=== PATIENT | male | born 1950 | race Caucasian/White ===

== ENCOUNTER → 2017-06-15 | Outpatient (CLI) | payer OTHER | END | disposition home or self-care (01) | LOC: PETCFH 07:49 | PROVIDERS: ATTEND Internal Medicine Hematology & Oncology | DX: C83.18 Mantle cell lymphoma, lymph nodes of multiple sites (principal); I70.0 Atherosclerosis of aorta | CPT/HCPCS: 78815; A9552 ==

== ENCOUNTER 2017-07-10 08:24 | Day surgery (SDC) | payer OTHER ==
[~2017-07-10] VITALS: Ht 198.1 cm; Wt 124.5 kg
[2017-07-10] MEDS ORDERED: PLEASE ENTER HEIGHT AND WEIGHT MC SCH (09:00)
[2017-07-10] MEDS ORDERED: PLEASE ENTER ALLERGIES MC SCH ×2 (09:00)
[2017-07-10] MEDS ORDERED: SODIUM CHLORIDE 0.9% 1,000 ML IV SCH (09:06)
[2017-07-10 09:07] VITALS: BP 164/82
[2017-07-10] MEDS ORDERED: metformin PO (09:13)
[2017-07-10] MEDS ORDERED: TAMS0.4C2 PO (09:13)
[2017-07-10] MEDS ORDERED: LISI5TAB7 PO (09:13)
[2017-07-10] MEDS ORDERED: januvia (09:13)
[2017-07-10] MEDS ORDERED: CEFAZOLIN PMX 1GM/50ML 50 ML IV ONE (09:30)
[2017-07-10] MEDS ORDERED: LIDOCAINE 2%, 20ML ONE (09:44)
[2017-07-10] MEDS ORDERED: MIDAZOLAM 1 MG/ML, 5ML ONE (10:04)
[2017-07-10] MEDS ORDERED: FENTANYL PF 100 MCG/2ML ONE (10:04)
[2017-07-10] MEDS ORDERED: FLUMAZENIL 0.1 MG/1 ML, 5ML ONE (10:05)
[2017-07-10] MEDS ORDERED: NALOXONE 1 MG/ML, 2ML ONE (10:05)
[2017-07-10] MEDS ORDERED: LIDOCAINE 1%, 20ML ONE (10:40)
== END 2017-07-10 13:00 ==
LOC: OUT 08:24
PROVIDERS: ATTEND Internal Medicine Hematology & Oncology
DX: Z45.2 Encounter for adjustment and management of vascular access device (principal); Z51.11 Encounter for antineoplastic chemotherapy; C83.18 Mantle cell lymphoma, lymph nodes of multiple sites; I10 Essential (primary) hypertension; Z87.891 Personal history of nicotine dependence
CPT/HCPCS: 36561; 76937; 77001; 99156; 99157; C1788; C1894; J0690; J1642; J2250; J3010; J3490; J2310

== ENCOUNTER 2017-07-16 07:39 | Day surgery (SDC) | payer OTHER ==
[~2017-07-16 07:39] MED LIST: LISI5TAB7 PO; TAMS0.4C2 PO; januvia; metformin PO
[2017-07-16] MEDS ORDERED: LIDOCAINE 2%, 20ML ONE (07:46)
== END 2017-07-16 15:00 ==
LOC: RAD 07:39
PROVIDERS: ATTEND Surgery
DX: C83.10 Mantle cell lymphoma, unspecified site (principal); C83.30 Diffuse large B-cell lymphoma, unspecified site
CPT/HCPCS: 38221; 38505; 77012; 85097; 88237; 88264; 88280; 88305; G0364; 85025; 88311; J3490

== ENCOUNTER → 2017-10-22 | Outpatient (CLI) | payer OTHER | END | disposition home or self-care (01) | LOC: PETCFH 09:14 | PROVIDERS: ATTEND Internal Medicine Hematology & Oncology | DX: C83.18 Mantle cell lymphoma, lymph nodes of multiple sites (principal); D69.6 Thrombocytopenia, unspecified | CPT/HCPCS: 78815; A9552 ==

== ENCOUNTER → 2018-02-04 | Outpatient (CLI) | payer OTHER, MEDICARE | LOC: PETCFH 08:35 | PROVIDERS: ATTEND Internal Medicine Hematology & Oncology | DX: C83.18 Mantle cell lymphoma, lymph nodes of multiple sites (principal); R91.1 Solitary pulmonary nodule | CPT/HCPCS: 78815; A9552 ==

== ENCOUNTER 2018-03-11 06:55 | Day surgery (SDC) | payer OTHER, MEDICARE ==
[~2018-03-11] VITALS: Ht 195.6 cm; Wt 116.6 kg
[2018-03-11] MEDS ORDERED: SODIUM CHLORIDE 0.9% 1,000 ML IV SCH (07:33)
[2018-03-11 07:34] VITALS: BP 135/79
[2018-03-11] MEDS ORDERED: LIDOCAINE 2%, 20ML ONE (08:04)
[2018-03-11] MEDS ORDERED: FENTANYL PF 100 MCG/2ML ONE (08:18)
[2018-03-11] MEDS ORDERED: MIDAZOLAM 1 MG/ML, 5ML ONE (08:18)
[2018-03-11] MEDS ORDERED: FLUMAZENIL 0.1 MG/1 ML, 5ML ONE (08:18)
[2018-03-11] MEDS ORDERED: NALOXONE 1 MG/ML, 2ML ONE (08:18)
== END 2018-03-11 10:30 | disposition home or self-care (01) ==
LOC: OUT 06:55
PROVIDERS: ATTEND Internal Medicine Hematology & Oncology
DX: Z45.2 Encounter for adjustment and management of vascular access device (principal); C83.18 Mantle cell lymphoma, lymph nodes of multiple sites; F17.210 Nicotine dependence, cigarettes, uncomplicated; E11.9 Type 2 diabetes mellitus without complications; I10 Essential (primary) hypertension; E78.5 Hyperlipidemia, unspecified; Z98.890 Other specified postprocedural states; Z79.84 Long term (current) use of oral hypoglycemic drugs
CPT/HCPCS: 36590; 77001; 82962; 99156; J2250; J3010; J3490; 99157; J2310

== ENCOUNTER → 2019-01-20 | Outpatient (CLI) | payer OTHER ==
[~2019-01-20] MED LIST changes: +METOPROLOL
== END | disposition home or self-care (01) ==
LOC: PETCFH 08:56
PROVIDERS: ATTEND Internal Medicine Hematology & Oncology
DX: C83.18 Mantle cell lymphoma, lymph nodes of multiple sites (principal); D69.6 Thrombocytopenia, unspecified; J90 Pleural effusion, not elsewhere classified; R59.1 Generalized enlarged lymph nodes; R91.1 Solitary pulmonary nodule
CPT/HCPCS: 78815; A9552

== ENCOUNTER 2019-01-21 12:19 | Day surgery (SDC) | payer OTHER ==
[~2019-01-21] VITALS: Ht 195.6 cm; Wt 106.6 kg
[~2019-01-21 12:19] MED LIST changes: -METOPROLOL
[2019-01-21 13:05] VITALS: BP 97/64
[2019-01-21] MEDS ORDERED: FENTANYL PF 100 MCG/2ML ONE (13:43)
[2019-01-21] MEDS ORDERED: MIDAZOLAM 1 MG/ML, 5ML ONE ×2 (13:43)
[2019-01-21] MEDS ORDERED: FLUMAZENIL 0.1 MG/1 ML, 5ML ONE (13:44)
[2019-01-21] MEDS ORDERED: NALOXONE 1 MG/ML, 2ML ONE (13:44)
== END 2019-01-21 16:10 | disposition home or self-care (01) ==
LOC: OUT 12:19
PROVIDERS: ATTEND Internal Medicine Hematology & Oncology
DX: C83.18 Mantle cell lymphoma, lymph nodes of multiple sites (principal); F17.200 Nicotine dependence, unspecified, uncomplicated; E11.9 Type 2 diabetes mellitus without complications; I10 Essential (primary) hypertension; E78.5 Hyperlipidemia, unspecified; Z98.890 Other specified postprocedural states; Z79.84 Long term (current) use of oral hypoglycemic drugs
CPT/HCPCS: 49180; 77012; 88305; 88342; 88360; 99156; 99157; J2250; J3010; J2310

== ENCOUNTER 2019-01-23 15:28 | Inpatient (IN) | payer OTHER, MEDICARE ==
[~2019-01-23] VITALS: Ht 195.6 cm; Wt 86.8 kg
[2019-01-23] MEDS ORDERED: NOREPINEPHRINE 4 MG in SODIUM CHLORIDE 0.9% 246 ML IV PRN ×2 (15:30→17:30)
[2019-01-23] MEDS ORDERED: SODIUM CHLORIDE FLUSH 10ML SYR IVF ONE (15:30)
[2019-01-23] MEDS ORDERED: SODIUM CHLORIDE FLUSH 10ML SYR IVF PRN (16:00)
[2019-01-23 16:05] LABS: MEAN CORPUSCULAR HEMOGLOBIN 33.7 pg (27.5-34.5); MEAN CORPUSCULAR HGB CONC 31.8 g/dL (33.2-36.2); MEAN CORPUSCULAR VOLUME 105.9 fL (81-97); MEAN PLATELET VOLUME 8.8 fL (7.4-10.4); PLATELET COUNT 108 x10^3/uL (130-400); RED BLOOD COUNT 2.96 x10^6/uL (4.38-5.82); RED CELL DISTRIBUTION WIDTH 21.7 % (9.4-14.8)
[2019-01-23] MEDS ORDERED: METOPROLOL (16:15)
[2019-01-23 16:16] LABS: INTERNATIONAL NORMALIZED RATIO 1.09 (0.93-1.1); PROTHROMBIN TIME 11.4 Seconds (9.6-11.5)
[2019-01-23 16:17] LABS: ALANINE AMINOTRANSFERASE 22 U/L (12-78); ALBUMIN 2.6 g/dL (3.4-5.0); ANION GAP 18 mmol/L (5-15); CALCIUM 8.8 mg/dL (8.5-10.1); CHLORIDE 105 mmol/L (98-107); CREATININE 2.45 mg/dL (0.7-1.3)
[2019-01-23 16:21] LABS: ALKALINE PHOSPHATASE 94 U/L (45-117); BILIRUBIN,TOTAL 0.2 mg/dL (0.2-1.0); TOTAL PROTEIN 5.8 g/dL (6.4-8.2)
[2019-01-23 16:23] LABS: MD YES
[2019-01-23 16:27] LABS: BAND#(MANUAL) 4.98 x10^3/uL; BANDS%(MANUAL) 14 % (0-7); LYMPHS% (MANUAL) 34 % (22-44); MONOS#(MANUAL) 1.78 x10^3/uL (0.3-2.7); MONOS% (MANUAL) 5 % (2-9); REACTIVE LYMPHS # (MANUAL) 4.27 x10^3/uL (0-0); REACTIVE LYMPHS % (MANUAL) 12 % (0-0); SEG#(MANUAL) 12.46 x10^3/uL (1.8-6.8); SEGS% (MANUAL) 35 % (42-75)
[2019-01-23 16:28] LABS: <PLATELET ESTIMATE> DECREASED; <PLT MORPHOLOGY> NORMAL PLT MORPH; ANISOCYTOSIS 1+; POLYCHROMASIA 1+
[2019-01-23] MEDS ORDERED: DEXTROSE 50%, 50ML SYRINGE IVPush PRN (17:30)
[2019-01-23] MEDS ORDERED: POLYETHYLENE GLYCOL 17 GM PACKET PO PRN (17:30)
[2019-01-23] MEDS ORDERED: PHARMACY MAY ADJ FOR RENAL FX MC PRN (17:30)
[2019-01-23] MEDS ORDERED: GLUCAGON 1 MG IM PRN (17:30)
[2019-01-23] MEDS ORDERED: VANCOMYCIN PMX 1GM/200ML 200 ML IV ONE (17:30)
[2019-01-23] MEDS ORDERED: BISACODYL 10 MG SUPP PR PRN (17:30)
[2019-01-23] MEDS ORDERED: PROMETHAZINE 25 MG/ML, 1ML IM PRN (17:30)
[2019-01-23] MEDS ORDERED: DOCUSATE 100 MG CAPSULE PO PRN (17:30)
[2019-01-23] MEDS ORDERED: DEXTROSE 4 GM TAB.CHEW PO PRN (17:30)
[2019-01-23] MEDS ORDERED: SODIUM CHLORIDE 0.9% 1,000ML IVBOLUS ONE (17:30)
[2019-01-23] MEDS ORDERED: MAGNESIUM SULFATE PMX 2GM/50ML 50 ML IV ONE (17:30)
[2019-01-23] MEDS ORDERED: VANCOMYCIN PER PHARMACY MC PRN (17:30)
[2019-01-23] MEDS: SODIUM CHLORIDE 0.9% 1,000 ML IV SCH (17:30)
[2019-01-23] MEDS ORDERED: HEPARIN 5,000 UNITS/ML, 1ML ONE (17:39)
[2019-01-23] MEDS: HEPARIN 5,000 UNITS/ML, 1ML SQ SCH (17:40)
[2019-01-23] MEDS ORDERED: PHARMACOKINETIC MONITORING MC PRN (18:00)
[2019-01-23] MEDS ORDERED: PHARMACOKINETIC CONSULTATION MC ONE (18:00)
[2019-01-23] MEDS: VANCOMYCIN 2,000 MG in SODIUM CHLORIDE 0.9% 500 ML IV SCH (18:38)
[2019-01-23] MEDS: VASOPRESSIN 100 UNIT in SODIUM CHLORIDE 0.9% 495 ML IV PRN (18:53)
[2019-01-23] MEDS: PIPERACILLIN/TAZO/PMX 3.375GM 50 ML IV SCH (19:08)
[2019-01-23] MEDS: INSULIN LISPRO 100 UNITS/ML, PEN SQ-INSULIN SCH (21:00)
[2019-01-23] MEDS: SODIUM CHLORIDE FLUSH 10ML SYR IVF SCH (23:03)
[2019-01-23] MEDS: NOREPINEPHRINE 8 MG in SODIUM CHLORIDE 0.9% 242 ML IV PRN (23:22)
[2019-01-24 00:13] VITALS: BP 130/64
[2019-01-24] MEDS: PIPERACILLIN/TAZO/PMX 3.375GM 50 ML IV SCH ×2 (01:49→10:08)
[2019-01-24] MEDS: HEPARIN 5,000 UNITS/ML, 1ML SQ SCH ×3 (01:49→17:55)
[2019-01-24 04:00] VITALS: BP 110/45
[2019-01-24 04:58] LABS: CHLORIDE 108 mmol/L (98-107)
[2019-01-24 04:59] LABS: MEAN CORPUSCULAR HEMOGLOBIN 33.6 pg (27.5-34.5); MEAN CORPUSCULAR HGB CONC 31.6 g/dL (33.2-36.2); MEAN CORPUSCULAR VOLUME 106.3 fL (81-97); RED BLOOD COUNT 2.84 x10^6/uL (4.38-5.82); RED CELL DISTRIBUTION WIDTH 21.6 % (9.4-14.8)
[2019-01-24] MEDS: SODIUM CHLORIDE 0.9% 1,000 ML IV SCH ×3 (05:02→23:12)
[2019-01-24 05:29] LABS: ALANINE AMINOTRANSFERASE 24 U/L (12-78); ALBUMIN 2.5 g/dL (3.4-5.0); ALKALINE PHOSPHATASE 89 U/L (45-117); ANION GAP 12 mmol/L (5-15); BILIRUBIN,TOTAL 0.2 mg/dL (0.2-1.0); CALCIUM 8.4 mg/dL (8.5-10.1); CREATININE 1.57 mg/dL (0.7-1.3); TOTAL PROTEIN 5.7 g/dL (6.4-8.2)
[2019-01-24 05:43] LABS: MD YES; MEAN PLATELET VOLUME 9.4 fL (7.4-10.4); PLATELET COUNT 93 x10^3/uL (130-400)
[2019-01-24 05:50] LABS: BAND#(MANUAL) 2.14 x10^3/uL; BANDS%(MANUAL) 7 % (0-7); LYMPH#(MANUAL) 8.57 x10^3/uL (1-3.4); LYMPHS% (MANUAL) 28 % (22-44); MONOS#(MANUAL) 0.61 x10^3/uL (0.3-2.7); MONOS% (MANUAL) 2 % (2-9); SEG#(MANUAL) 13.16 x10^3/uL (1.8-6.8); SEGS% (MANUAL) 43 % (42-75)
[2019-01-24 05:52] LABS: ANISOCYTOSIS 1+; OTHER CELLS # (MANUAL) 6.12 x10^3/uL (0-0); OTHER CELLS % (MANUAL) 20 % (0-0); POLYCHROMASIA 1+
[2019-01-24 05:53] LABS: <PLATELET ESTIMATE> DECREASED; <PLT MORPHOLOGY> NORMAL PLT MORPH
[2019-01-24] MEDS: INSULIN LISPRO 100 UNITS/ML, PEN SQ-INSULIN SCH ×4 (06:32→20:47)
[2019-01-24] MEDS ORDERED: ETOMIDATE 20 MG/10 ML ONE (07:40)
[2019-01-24] MEDS ORDERED: ROCURONIUM 10 MG/ML,10ML ONE (07:40)
[2019-01-24] MEDS ORDERED: PROPOFOL 10 MG/ML, 100ML IV ONE (07:40)
[2019-01-24] MEDS: SENNA/DOCUSATE TABLET PO SCH (09:00)
[2019-01-24] MEDS: SODIUM CHLORIDE FLUSH 10ML SYR IVF SCH ×3 (09:00→20:48)
[2019-01-24] MEDS: methylPREDNISolone SOD SUCC 125 MG/2 ML IVPush SCH ×3 (11:09→23:34)
[2019-01-24] MEDS ORDERED: LORazepam 2 MG/ML, 1ML ONE (11:57)
[2019-01-24] MEDS ORDERED: FENTANYL PF 100 MCG/2ML ONE (12:08)
[2019-01-24] MEDS ORDERED: LACTULOSE 20 GM/30 ML UDC NG PRN (13:30)
[2019-01-24] MEDS ORDERED: GLUCAGON 1 MG IM PRN (13:30)
[2019-01-24] MEDS ORDERED: PHARMACY MAY ADJ FOR RENAL FX MC SCH (13:30)
[2019-01-24] MEDS ORDERED: SENNA 176 MG/5 ML ORAL SOL NG PRN (13:30)
[2019-01-24] MEDS ORDERED: ALBUTEROL/IPRATROPIUM 2.5MG/0.5MG, 3 ML INLINE SCH (13:30)
[2019-01-24] MEDS ORDERED: DEXTROSE 50%, 50ML SYRINGE IVPush PRN (13:30)
[2019-01-24] MEDS ORDERED: LIDOCAINE-MPF 1%, 2ML ENDO PRN (13:30)
[2019-01-24] MEDS ORDERED: BISACODYL 10 MG SUPP PR PRN (13:30)
[2019-01-24] MEDS ORDERED: SENNA/DOCUSATE TABLET NG PRN (13:30)
[2019-01-24] MEDS ORDERED: DEXTROSE 4 GM TAB.CHEW PO PRN (13:30)
[2019-01-24] MEDS: PROPOFOL 100 ML IV PRN ×3 (14:00→21:51)
[2019-01-24 14:18] LABS: MEAN CORPUSCULAR HEMOGLOBIN 34.4 pg (27.5-34.5); MEAN CORPUSCULAR HGB CONC 32.1 g/dL (33.2-36.2); MEAN PLATELET VOLUME 8.9 fL (7.4-10.4); PLATELET COUNT 108 x10^3/uL (130-400); RED BLOOD COUNT 2.92 x10^6/uL (4.38-5.82); RED CELL DISTRIBUTION WIDTH 21.3 % (9.4-14.8)
[2019-01-24 14:23] LABS: INTERNATIONAL NORMALIZED RATIO 1.09 (0.93-1.1); PROTHROMBIN TIME 11.4 Seconds (9.6-11.5)
[2019-01-24 14:24] LABS: ANION GAP 9 mmol/L (5-15); CALCIUM 8.7 mg/dL (8.5-10.1); CHLORIDE 109 mmol/L (98-107); CREATININE 1.78 mg/dL (0.7-1.3); TRIGLYCERIDES 266 mg/dL (50-200)
[2019-01-24 14:28] LABS: TROPONIN I < 0.015 ng/mL (0.000-0.045)
[2019-01-24] MEDS ORDERED: SODIUM BICARBONATE 1 MEQ/ML, 50ML VIAL IVPush ONE (14:30)
[2019-01-24] MEDS ORDERED: SODIUM BICARB 8.4%, 50ML SYRINGE ONE (14:34)
[2019-01-24 14:38] LABS: MD YES
[2019-01-24] MEDS: ALBUTEROL/IPRATROPIUM 2.5MG/0.5MG, 3 ML INLINE SCH ×3 (14:40→22:26)
[2019-01-24 14:48] LABS: BAND#(MANUAL) 2.22 x10^3/uL; BANDS%(MANUAL) 6 % (0-7); LYMPH#(MANUAL) 12.21 x10^3/uL (1-3.4); LYMPHS% (MANUAL) 33 % (22-44); METAMYELOCYTES# (MANUAL) 0.37 x10^3/uL (0-0); METAMYELOCYTES% (MANUAL) 1 % (0-1); MONOS#(MANUAL) 2.22 x10^3/uL (0.3-2.7); MONOS% (MANUAL) 6 % (2-9); SEG#(MANUAL) 16.65 x10^3/uL (1.8-6.8); SEGS% (MANUAL) 45 % (42-75)
[2019-01-24 14:51] LABS: ANISOCYTOSIS 1+; OTHER CELLS # (MANUAL) 3.33 x10^3/uL (0-0); OTHER CELLS % (MANUAL) 9 % (0-0)
[2019-01-24 14:52] LABS: <PLATELET ESTIMATE> DECREASED; <PLT MORPHOLOGY> NORMAL PLT MORPH; POLYCHROMASIA 1+
[2019-01-24] MEDS ORDERED: ALBUMIN HUMAN 5% 500 ML IV STA (15:42)
[2019-01-24] MEDS: MEROPENEM 1 GM in SODIUM CHLORIDE 0.9% 100 ML IV SCH (16:40)
[2019-01-24 16:43] LABS: MICROSCOPIC INDICATED
[2019-01-24 16:58] LABS: CULTURE INDICATED? NO
[2019-01-24] MEDS: SODIUM BICARBONATE 8.4% 150 MEQ in DEXTROSE 5% 1,000 ML IV SCH (17:55)
[2019-01-24] MEDS: NOREPINEPHRINE 8 MG in SODIUM CHLORIDE 0.9% 242 ML IV PRN (19:41)
[2019-01-24 19:57] LABS: TROPONIN I < 0.015 ng/mL (0.000-0.045)
[2019-01-24] MEDS: VANCOMYCIN 2,000 MG in SODIUM CHLORIDE 0.9% 500 ML IV SCH (20:17)
[2019-01-24] MEDS: VASOPRESSIN 100 UNIT in SODIUM CHLORIDE 0.9% 495 ML IV PRN (23:37)
[2019-01-25] MEDS: MEROPENEM 1 GM in SODIUM CHLORIDE 0.9% 100 ML IV SCH ×2 (00:28→08:01)
[2019-01-25] MEDS: HEPARIN 5,000 UNITS/ML, 1ML SQ SCH ×3 (02:10→17:30)
[2019-01-25] MEDS: PROPOFOL 100 ML IV PRN ×7 (02:10→21:54)
[2019-01-25] MEDS: ALBUTEROL/IPRATROPIUM 2.5MG/0.5MG, 3 ML INLINE SCH ×6 (02:13→22:48)
[2019-01-25] MEDS: NOREPINEPHRINE 8 MG in SODIUM CHLORIDE 0.9% 242 ML IV PRN ×2 (03:42→18:28)
[2019-01-25 04:00] VITALS: BP 106/55
[2019-01-25 05:11] LABS: HCT (SEDRATE) 25.8 % (39.2-51.8)
[2019-01-25] MEDS: methylPREDNISolone SOD SUCC 125 MG/2 ML IVPush SCH (05:14)
[2019-01-25 05:17] LABS: ALBUMIN 2.3 g/dL (3.4-5.0); ANION GAP 9 mmol/L (5-15); CHLORIDE 109 mmol/L (98-107)
[2019-01-25 05:18] LABS: MEAN CORPUSCULAR HGB CONC 32.1 g/dL (33.2-36.2); MEAN CORPUSCULAR VOLUME 105.8 fL (81-97); MEAN PLATELET VOLUME 9.1 fL (7.4-10.4); PLATELET COUNT 104 x10^3/uL (130-400); RED BLOOD COUNT 2.47 x10^6/uL (4.38-5.82)
[2019-01-25 05:29] LABS: RED CELL DISTRIBUTION WIDTH 21.5 % (9.4-14.8)
[2019-01-25 05:32] LABS: ALANINE AMINOTRANSFERASE 23 U/L (12-78); ALKALINE PHOSPHATASE 101 U/L (45-117); BILIRUBIN,TOTAL 0.8 mg/dL (0.2-1.0); CREATININE 2.18 mg/dL (0.7-1.3); TOTAL PROTEIN 5.5 g/dL (6.4-8.2)
[2019-01-25 05:43] LABS: C-REACTIVE PROTEIN, QUANT > 19.00 mg/dL (0.02-0.49)
[2019-01-25 05:45] LABS: MD YES
[2019-01-25 05:47] LABS: <PLATELET ESTIMATE> DECREASED; <PLT MORPHOLOGY> NORMAL PLT MORPH; ANISOCYTOSIS 1+; BAND#(MANUAL) 0.73 x10^3/uL; BANDS%(MANUAL) 2 % (0-7); LYMPH#(MANUAL) 13.54 x10^3/uL (1-3.4); LYMPHS% (MANUAL) 37 % (22-44); MONOS#(MANUAL) 4.03 x10^3/uL (0.3-2.7); MONOS% (MANUAL) 11 % (2-9); NRBC % (MANUAL) 1 % (0-1); POLYCHROMASIA 1+; SEGS% (MANUAL) 50 % (42-75)
[2019-01-25] MEDS: INSULIN LISPRO 100 UNITS/ML, PEN SQ-INSULIN SCH ×4 (06:39→21:00)
[2019-01-25] MEDS: SODIUM BICARBONATE 8.4% 150 MEQ in DEXTROSE 5% 1,000 ML IV SCH ×2 (08:01→21:09)
[2019-01-25] MEDS: SENNA/DOCUSATE TABLET PO SCH (08:44)
[2019-01-25] MEDS: SODIUM CHLORIDE FLUSH 10ML SYR IVF SCH ×4 (08:46→21:10)
[2019-01-25] MEDS ORDERED: LIDOCAINE 1%, 20ML ONE (10:00)
[2019-01-25] MEDS: CEFAZOLIN 2,000 MG in SODIUM CHLORIDE 0.9% 50 ML IV SCH ×2 (10:19→21:53)
[2019-01-25] MEDS ORDERED: FAMOTIDINE 20 MG/2 ML IVPush SCH (11:00)
[2019-01-25] MEDS: FENTANYL PF 100 MCG/2ML IVPush PRN (11:32)
[2019-01-25 13:40] LABS: ANION GAP 11 mmol/L (5-15); CALCIUM 8.1 mg/dL (8.5-10.1); CHLORIDE 108 mmol/L (98-107); CREATININE 2.49 mg/dL (0.7-1.3)
[2019-01-25] MEDS ORDERED: HEPARIN 1,000 UNITS/ML, 10ML ONE (13:51)
[2019-01-25] MEDS ORDERED: BUPIVACAINE/EPI 0.5% 1:200K ONE (13:51)
[2019-01-25] MEDS ORDERED: ROCURONIUM 10 MG/ML,10ML ONE (14:33)
[2019-01-25] MEDS ORDERED: PROPOFOL 10 MG/ML, 50ML ONE (14:33)
[2019-01-25] MEDS ORDERED: PROPOFOL 10 MG/ML, 20ML ONE (14:33)
[2019-01-25 18:41] LABS: ANION GAP 12 mmol/L (5-15); CALCIUM 8.1 mg/dL (8.5-10.1); CHLORIDE 109 mmol/L (98-107); CREATININE 2.67 mg/dL (0.7-1.3)
[2019-01-25 19:09] LABS: MEAN CORPUSCULAR HEMOGLOBIN 34.5 pg (27.5-34.5); MEAN CORPUSCULAR HGB CONC 32.5 g/dL (33.2-36.2); MEAN CORPUSCULAR VOLUME 106.2 fL (81-97); MEAN PLATELET VOLUME 8.8 fL (7.4-10.4); PLATELET COUNT 99 x10^3/uL (130-400); RED BLOOD COUNT 2.33 x10^6/uL (4.38-5.82)
[2019-01-25 19:44] LABS: MD YES
[2019-01-25 20:00] LABS: D-DIMER (DIC) 5.62 ug/mlFEU (0.00-0.52); PROTIME 10.9 Seconds (9.6-11.5)
[2019-01-25] MEDS: FAMOTIDINE 20 MG/2 ML IVPush SCH (21:12)
[2019-01-25 22:30] LABS: BAND#(MANUAL) 0.36 x10^3/uL; BANDS%(MANUAL) 1 % (0-7); LYMPH#(MANUAL) 11.04 x10^3/uL (1-3.4); LYMPHS% (MANUAL) 31 % (22-44); MONOS#(MANUAL) 1.78 x10^3/uL (0.3-2.7); MONOS% (MANUAL) 5 % (2-9); SEG#(MANUAL) 17.44 x10^3/uL (1.8-6.8); SEGS% (MANUAL) 49 % (42-75)
[2019-01-25 22:31] LABS: NRBC % (MANUAL) 1 % (0-1); OTHER CELLS # (MANUAL) 4.98 x10^3/uL (0-0); OTHER CELLS % (MANUAL) 14 % (0-0)
[2019-01-25 22:32] LABS: POLYCHROMASIA 1+
[2019-01-25 22:33] LABS: ROULEAUX 1+
[2019-01-25 22:36] LABS: <PLATELET ESTIMATE> DECREASED; <PLT MORPHOLOGY> NORMAL PLT MORPH
[2019-01-26] MEDS: PROPOFOL 100 ML IV PRN ×8 (00:40→22:47)
[2019-01-26] MEDS: HEPARIN 5,000 UNITS/ML, 1ML SQ SCH ×3 (02:09→16:58)
[2019-01-26] MEDS: ALBUTEROL/IPRATROPIUM 2.5MG/0.5MG, 3 ML INLINE SCH ×6 (02:28→22:05)
[2019-01-26 04:00] VITALS: BP 97/56
[2019-01-26 05:38] LABS: ANION GAP 14 mmol/L (5-15); CALCIUM 7.8 mg/dL (8.5-10.1); CHLORIDE 107 mmol/L (98-107)
[2019-01-26 05:40] LABS: CREATININE 2.97 mg/dL (0.7-1.3)
[2019-01-26 06:17] LABS: MD YES
[2019-01-26 06:18] LABS: MEAN CORPUSCULAR HEMOGLOBIN 35.1 pg (27.5-34.5); MEAN CORPUSCULAR HGB CONC 33.4 g/dL (33.2-36.2); MEAN CORPUSCULAR VOLUME 105.1 fL (81-97); MEAN PLATELET VOLUME 8.4 fL (7.4-10.4); PLATELET COUNT 90 x10^3/uL (130-400); RED BLOOD COUNT 2.16 x10^6/uL (4.38-5.82); RED CELL DISTRIBUTION WIDTH 22.8 % (9.4-14.8)
[2019-01-26 06:43] LABS: BAND#(MANUAL) 0.89 x10^3/uL; BANDS%(MANUAL) 3 % (0-7); LYMPH#(MANUAL) 9.24 x10^3/uL (1-3.4); LYMPHS% (MANUAL) 31 % (22-44); SEG#(MANUAL) 16.39 x10^3/uL (1.8-6.8); SEGS% (MANUAL) 55 % (42-75)
[2019-01-26 06:44] LABS: <PLATELET ESTIMATE> DECREASED; <PLT MORPHOLOGY> NORMAL PLT MORPH; BLASTS # (MANUAL) 3.28 x10^3/uL (0-0); NRBC % (MANUAL) 2 % (0-1); POLYCHROMASIA 1+
[2019-01-26 06:45] LABS: SMUDGE CELLS 1+
[2019-01-26] MEDS: INSULIN LISPRO 100 UNITS/ML, PEN SQ-INSULIN SCH ×4 (06:50→21:10)
[2019-01-26 06:52] LABS: BLASTS % (MANUAL) 11 % (0-0)
[2019-01-26] MEDS: FENTANYL PF 100 MCG/2ML IVPush PRN (08:02)
[2019-01-26] MEDS: SODIUM CHLORIDE FLUSH 10ML SYR IVF SCH ×3 (08:05→19:54)
[2019-01-26] MEDS: SENNA/DOCUSATE TABLET PO SCH (09:16)
[2019-01-26] MEDS: CEFAZOLIN 2,000 MG in SODIUM CHLORIDE 0.9% 50 ML IV SCH ×2 (09:19→21:11)
[2019-01-26] MEDS: SODIUM BICARBONATE 8.4% 150 MEQ in DEXTROSE 5% 1,000 ML IV SCH (09:28)
[2019-01-26] MEDS: FENTANYL PF 2,500 MCG in SODIUM CHLORIDE 0.9% 200 ML IV PRN (09:45)
[2019-01-26] MEDS: METHYLNALTREXONE 12 MG/0.6 ML SQ SCH (09:47)
[2019-01-26] MEDS: NOREPINEPHRINE 8 MG in SODIUM CHLORIDE 0.9% 242 ML IV PRN ×2 (11:16→19:55)
[2019-01-26 16:42] LABS: ANION GAP 11 mmol/L (5-15); CALCIUM 7.2 mg/dL (8.5-10.1); CHLORIDE 107 mmol/L (98-107); CREATININE 3.16 mg/dL (0.7-1.3)
[2019-01-26] MEDS: FAMOTIDINE 20 MG/2 ML IVPush SCH (21:10)
[2019-01-26] MEDS ORDERED: CEFAZOLIN PMX 1GM/50ML 50 ML IV SCH (21:30)
[2019-01-27] MEDS: HEPARIN 5,000 UNITS/ML, 1ML SQ SCH ×3 (02:07→16:36)
[2019-01-27] MEDS: PROPOFOL 100 ML IV PRN ×4 (02:08→11:16)
[2019-01-27] MEDS: ALBUTEROL/IPRATROPIUM 2.5MG/0.5MG, 3 ML INLINE SCH ×6 (02:33→22:26)
[2019-01-27] MEDS: NOREPINEPHRINE 8 MG in SODIUM CHLORIDE 0.9% 242 ML IV PRN ×2 (03:32→23:21)
[2019-01-27] MEDS: SODIUM BICARBONATE 8.4% 150 MEQ in DEXTROSE 5% 1,000 ML IV SCH (03:32)
[2019-01-27] MEDS: VASOPRESSIN 100 UNIT in SODIUM CHLORIDE 0.9% 495 ML IV PRN (03:50)
[2019-01-27] MEDS: INSULIN LISPRO 100 UNITS/ML, PEN SQ-INSULIN SCH ×4 (04:04→19:35)
[2019-01-27 04:27] LABS: MEAN CORPUSCULAR HEMOGLOBIN 34.5 pg (27.5-34.5); MEAN CORPUSCULAR HGB CONC 32.5 g/dL (33.2-36.2); MEAN CORPUSCULAR VOLUME 106.2 fL (81-97); MEAN PLATELET VOLUME 8.4 fL (7.4-10.4); PLATELET COUNT 96 x10^3/uL (130-400); RED BLOOD COUNT 2.28 x10^6/uL (4.38-5.82); RED CELL DISTRIBUTION WIDTH 22.5 % (9.4-14.8)
[2019-01-27 04:30] LABS: MD YES
[2019-01-27 04:35] LABS: ANION GAP 13 mmol/L (5-15); CALCIUM 7.6 mg/dL (8.5-10.1); CHLORIDE 109 mmol/L (98-107); CREATININE 3.36 mg/dL (0.7-1.3); TRIGLYCERIDES 470 mg/dL (50-200)
[2019-01-27 06:15] LABS: MONOS#(MANUAL) 1.12 x10^3/uL (0.3-2.7); MONOS% (MANUAL) 3 % (2-9); SEG#(MANUAL) 10.44 x10^3/uL (1.8-6.8); SEGS% (MANUAL) 28 % (42-75)
[2019-01-27 06:16] LABS: LYMPH#(MANUAL) 10.82 x10^3/uL (1-3.4); LYMPHS% (MANUAL) 29 % (22-44)
[2019-01-27 06:17] LABS: BLASTS # (MANUAL) 14.92 x10^3/uL (0-0); BLASTS % (MANUAL) 40 % (0-0)
[2019-01-27 06:18] LABS: POLYCHROMASIA 1+; SMUDGE CELLS 2+
[2019-01-27 06:20] LABS: <PLATELET ESTIMATE> DECREASED; <PLT MORPHOLOGY> NORMAL PLT MORPH
[2019-01-27] MEDS ORDERED: SODIUM CHLORIDE 0.45% 1,000 ML IV SCH (07:00)
[2019-01-27] MEDS: SENNA/DOCUSATE TABLET PO SCH (07:38)
[2019-01-27] MEDS: SODIUM CHLORIDE FLUSH 10ML SYR IVF SCH ×2 (07:39→19:23)
[2019-01-27] MEDS ORDERED: FUROSEMIDE 20 MG/2 ML IV SCH (09:00)
[2019-01-27] MEDS: DEXMEDETOMIDINE 1,000 MCG in SODIUM CHLORIDE 0.9% 240 ML IV PRN ×2 (09:42→19:22)
[2019-01-27] MEDS: CEFTRIAXONE PMX 2GM/50ML 50 ML IV SCH (11:35)
[2019-01-27] MEDS: DIAZEPAM 5 MG/ML, 2ML IV PRN (14:41)
[2019-01-27] MEDS ORDERED: ZIPRASIDONE 20 MG INJ IM ONE (16:30)
[2019-01-27] MEDS: FAMOTIDINE 20 MG/2 ML IVPush SCH (19:21)
[2019-01-27] MEDS: ACETAMINOPHEN 325 MG TABLET PO PRN (19:21)
[2019-01-28] MEDS: DEXMEDETOMIDINE 1,000 MCG in SODIUM CHLORIDE 0.9% 240 ML IV PRN ×4 (01:11→22:47)
[2019-01-28] MEDS: ACETAMINOPHEN 325 MG TABLET PO PRN ×2 (01:11→14:00)
[2019-01-28] MEDS: HEPARIN 5,000 UNITS/ML, 1ML SQ SCH ×3 (01:13→17:59)
[2019-01-28] MEDS: ALBUTEROL/IPRATROPIUM 2.5MG/0.5MG, 3 ML INLINE SCH ×6 (03:00→22:41)
[2019-01-28 04:42] LABS: MEAN CORPUSCULAR HGB CONC 32.1 g/dL (33.2-36.2); RED BLOOD COUNT 2.14 x10^6/uL (4.38-5.82); RED CELL DISTRIBUTION WIDTH 21.6 % (9.4-14.8)
[2019-01-28 04:43] LABS: ANION GAP 12 mmol/L (5-15); CALCIUM 7.3 mg/dL (8.5-10.1); CHLORIDE 108 mmol/L (98-107); CREATININE 3.64 mg/dL (0.7-1.3)
[2019-01-28] MEDS: INSULIN LISPRO 100 UNITS/ML, PEN SQ-INSULIN SCH ×4 (04:54→22:09)
[2019-01-28] MEDS: DIAZEPAM 5 MG/ML, 2ML IV PRN (05:01)
[2019-01-28] MEDS: FENTANYL PF 2,500 MCG in SODIUM CHLORIDE 0.9% 200 ML IV PRN (05:01)
[2019-01-28 05:03] LABS: MD YES
[2019-01-28 05:14] LABS: MEAN PLATELET VOLUME 8.6 fL (7.4-10.4); PLATELET COUNT 77 x10^3/uL (130-400)
[2019-01-28 05:25] LABS: BAND#(MANUAL) 0.37 x10^3/uL; BANDS%(MANUAL) 2 % (0-7); BLASTS # (MANUAL) 3.33 x10^3/uL (0-0); LYMPH#(MANUAL) 6.66 x10^3/uL (1-3.4); LYMPHS% (MANUAL) 36 % (22-44); METAMYELOCYTES# (MANUAL) 0.19 x10^3/uL (0-0); METAMYELOCYTES% (MANUAL) 1 % (0-1); MONOS#(MANUAL) 0.37 x10^3/uL (0.3-2.7); MONOS% (MANUAL) 2 % (2-9); MYELOCYTES# (MANUAL) 0.19 x10^3/uL (0-0); MYELOCYTES% (MANUAL) 1 % (0-0); NRBC % (MANUAL) 2 % (0-1); SEGS% (MANUAL) 40 % (42-75)
[2019-01-28 05:28] LABS: <PLATELET ESTIMATE> DECREASED; <PLT MORPHOLOGY> NORMAL PLT MORPH; BLASTS % (MANUAL) 18 % (0-0); POLYCHROMASIA 1+
[2019-01-28 05:29] LABS: ANISOCYTOSIS 1+
[2019-01-28] MEDS: FUROSEMIDE 20 MG/2 ML IV SCH (08:34)
[2019-01-28] MEDS: SODIUM CHLORIDE FLUSH 10ML SYR IVF SCH ×2 (08:35→20:25)
[2019-01-28] MEDS: SENNA/DOCUSATE TABLET PO SCH (08:35)
[2019-01-28] MEDS: QUETIAPINE 25MG TABLET PO SCH ×2 (08:35→20:25)
[2019-01-28] MEDS ORDERED: FUROSEMIDE 20 MG/2 ML IV SCH (09:00)
[2019-01-28] MEDS: METHYLNALTREXONE 12 MG/0.6 ML SQ SCH (10:32)
[2019-01-28] MEDS: CEFTRIAXONE PMX 2GM/50ML 50 ML IV SCH (10:35)
[2019-01-28 11:58] LABS: HIT RESULT NEGATIVE (NEGATIVE)
[2019-01-28] MEDS: FENTANYL PF 100 MCG/2ML IVPush PRN ×2 (16:35→20:51)
[2019-01-28] MEDS: FAMOTIDINE 20 MG/2 ML IVPush SCH (20:25)
[2019-01-28] MEDS: KETOROLAC 30 MG/1 ML IVPush PRN (20:55)
[2019-01-28 21:58] LABS: CULTURE INDICATED? YES; MICROSCOPIC INDICATED
[2019-01-28] MEDS: MIDAZOLAM 1 MG/ML, 2ML IVPush PRN (23:44)
[2019-01-29] MEDS: KETOROLAC 30 MG/1 ML IVPush PRN (02:12)
[2019-01-29] MEDS: HEPARIN 5,000 UNITS/ML, 1ML SQ SCH ×3 (02:12→17:50)
[2019-01-29] MEDS: MIDAZOLAM 1 MG/ML, 2ML IVPush PRN ×3 (02:16→06:09)
[2019-01-29] MEDS: ALBUTEROL/IPRATROPIUM 2.5MG/0.5MG, 3 ML INLINE SCH ×6 (03:00→22:31)
[2019-01-29] MEDS: FENTANYL PF 100 MCG/2ML IVPush PRN ×2 (04:12→06:09)
[2019-01-29 04:45] LABS: ANION GAP 12 mmol/L (5-15); CALCIUM 7.8 mg/dL (8.5-10.1); CHLORIDE 113 mmol/L (98-107)
[2019-01-29] MEDS: INSULIN LISPRO 100 UNITS/ML, PEN SQ-INSULIN SCH ×4 (04:54→22:00)
[2019-01-29 04:56] LABS: MEAN CORPUSCULAR HEMOGLOBIN 34.1 pg (27.5-34.5); MEAN CORPUSCULAR HGB CONC 32.1 g/dL (33.2-36.2); PLATELET COUNT 72 x10^3/uL (130-400); RED BLOOD COUNT 2.04 x10^6/uL (4.38-5.82)
[2019-01-29] MEDS: DEXMEDETOMIDINE 1,000 MCG in SODIUM CHLORIDE 0.9% 240 ML IV PRN (05:22)
[2019-01-29 05:59] LABS: MD YES
[2019-01-29 06:07] LABS: BAND#(MANUAL) 0.18 x10^3/uL; BANDS%(MANUAL) 1 % (0-7); METAMYELOCYTES# (MANUAL) 0.36 x10^3/uL (0-0); METAMYELOCYTES% (MANUAL) 2 % (0-1); MONOS#(MANUAL) 0.36 x10^3/uL (0.3-2.7); MONOS% (MANUAL) 2 % (2-9)
[2019-01-29 06:08] LABS: LYMPH#(MANUAL) 10.32 x10^3/uL (1-3.4); LYMPHS% (MANUAL) 58 % (22-44); MYELOCYTES# (MANUAL) 0.18 x10^3/uL (0-0); MYELOCYTES% (MANUAL) 1 % (0-0); SEG#(MANUAL) 4.63 x10^3/uL (1.8-6.8); SEGS% (MANUAL) 26 % (42-75)
[2019-01-29 06:09] LABS: BLASTS # (MANUAL) 1.78 x10^3/uL (0-0); BLASTS % (MANUAL) 10 % (0-0)
[2019-01-29 06:10] LABS: ANISOCYTOSIS 1+; NRBC % (MANUAL) 1 % (0-1); POLYCHROMASIA 1+
[2019-01-29 06:11] LABS: <PLATELET ESTIMATE> DECREASED; <PLT MORPHOLOGY> NORMAL PLT MORPH; SMUDGE CELLS 1+
[2019-01-29] MEDS ORDERED: MIDAZOLAM HCL 25 MG in SODIUM CHLORIDE 0.9% 245 ML IV PRN (08:30)
[2019-01-29 08:34] VITALS: BP 116/61
[2019-01-29 08:50] VITALS: BP 110/63
[2019-01-29 09:05] VITALS: BP 97/51
[2019-01-29] MEDS ORDERED: RASBURICASE 7.5 MG in SODIUM CHLORIDE 0.9% 50 ML IV ONE (09:30)
[2019-01-29 09:35] VITALS: BP 104/55
[2019-01-29] MEDS: FENTANYL PF 2,500 MCG in SODIUM CHLORIDE 0.9% 200 ML IV PRN (09:36)
[2019-01-29] MEDS: SENNA/DOCUSATE TABLET PO SCH (09:45)
[2019-01-29] MEDS: ACETAMINOPHEN 325 MG TABLET PO PRN (09:45)
[2019-01-29] MEDS: QUETIAPINE 25MG TABLET PO SCH ×2 (09:45→22:09)
[2019-01-29] MEDS: SODIUM CHLORIDE FLUSH 10ML SYR IVF SCH ×2 (09:45→22:12)
[2019-01-29] MEDS: FUROSEMIDE 20 MG/2 ML IV SCH (09:45)
[2019-01-29 10:05] VITALS: BP 98/54
[2019-01-29 12:00] VITALS: BP 100/52
[2019-01-29] MEDS: CEFTRIAXONE PMX 2GM/50ML 50 ML IV SCH (12:20)
[2019-01-29] MEDS: MIDAZOLAM HCL 50 MG in SODIUM CHLORIDE 0.9% 240 ML IV PRN ×2 (13:49→22:13)
[2019-01-29 15:42] LABS: CHLORIDE,URINE RANDOM 41 mmol/L; POTASSIUM,URINE RANDOM 36 mmol/L; SODIUM,URINE RANDOM 34 mmol/L
[2019-01-29] MEDS: NOREPINEPHRINE 8 MG in SODIUM CHLORIDE 0.9% 242 ML IV PRN (18:23)
[2019-01-29] MEDS: FAMOTIDINE 20 MG/2 ML IVPush SCH (22:09)
[2019-01-30] MEDS: ALBUTEROL/IPRATROPIUM 2.5MG/0.5MG, 3 ML INLINE SCH ×6 (03:00→22:23)
[2019-01-30] MEDS: HEPARIN 5,000 UNITS/ML, 1ML SQ SCH ×3 (03:11→16:58)
[2019-01-30] MEDS: INSULIN LISPRO 100 UNITS/ML, PEN SQ-INSULIN SCH ×4 (04:00→21:29)
[2019-01-30 05:41] LABS: ALBUMIN 1.8 g/dL (3.4-5.0); ANION GAP 13 mmol/L (5-15); CALCIUM 7.7 mg/dL (8.5-10.1); CHLORIDE 112 mmol/L (98-107); CREATININE 3.76 mg/dL (0.7-1.3); TRIGLYCERIDES 446 mg/dL (50-200)
[2019-01-30] MEDS: MIDAZOLAM HCL 50 MG in SODIUM CHLORIDE 0.9% 240 ML IV PRN ×2 (06:10→15:29)
[2019-01-30 06:11] LABS: HEMOGRAM NOTE RECHECKED; MEAN CORPUSCULAR HEMOGLOBIN 34.5 pg (27.5-34.5); MEAN CORPUSCULAR VOLUME 104.7 fL (81-97); MEAN PLATELET VOLUME 8.8 fL (7.4-10.4); PLATELET COUNT 70 x10^3/uL (130-400); RED BLOOD COUNT 2.17 x10^6/uL (4.38-5.82); RED CELL DISTRIBUTION WIDTH 23.8 % (9.4-14.8)
[2019-01-30 06:30] LABS: MD YES
[2019-01-30 07:18] LABS: BAND#(MANUAL) 0.56 x10^3/uL; BANDS%(MANUAL) 3 % (0-7); BASOS#(MANUAL) 0.19 x10^3/uL (0-0.1); BASOS% (MANUAL) 1 % (0-1); BLASTS # (MANUAL) 2.79 x10^3/uL (0-0); LYMPH#(MANUAL) 9.11 x10^3/uL (1-3.4); LYMPHS% (MANUAL) 49 % (22-44); METAMYELOCYTES# (MANUAL) 0.19 x10^3/uL (0-0); METAMYELOCYTES% (MANUAL) 1 % (0-1); MONOS#(MANUAL) 1.12 x10^3/uL (0.3-2.7); MONOS% (MANUAL) 6 % (2-9); MYELOCYTES# (MANUAL) 0.37 x10^3/uL (0-0); MYELOCYTES% (MANUAL) 2 % (0-0); SEG#(MANUAL) 4.28 x10^3/uL (1.8-6.8); SEGS% (MANUAL) 23 % (42-75)
[2019-01-30 07:20] LABS: BLASTS % (MANUAL) 15 % (0-0)
[2019-01-30 07:21] LABS: ANISOCYTOSIS 1+
[2019-01-30 07:22] LABS: <PLATELET ESTIMATE> DECREASED; <PLT MORPHOLOGY> NORMAL PLT MORPH; POLYCHROMASIA 1+; SMUDGE CELLS 1+
[2019-01-30] MEDS: QUETIAPINE 25MG TABLET PO SCH ×2 (08:13→21:10)
[2019-01-30] MEDS: SENNA/DOCUSATE TABLET PO SCH (08:13)
[2019-01-30] MEDS: FUROSEMIDE 40 MG/4 ML IV SCH ×2 (08:14→16:58)
[2019-01-30] MEDS: SODIUM CHLORIDE FLUSH 10ML SYR IVF SCH ×2 (08:14→21:09)
[2019-01-30] MEDS: ACETAMINOPHEN 325 MG TABLET PO PRN ×2 (08:19→18:49)
[2019-01-30] MEDS: METHYLNALTREXONE 12 MG/0.6 ML SQ SCH (10:08)
[2019-01-30] MEDS: CEFTRIAXONE PMX 2GM/50ML 50 ML IV SCH (10:26)
[2019-01-30] MEDS: NOREPINEPHRINE 8 MG in SODIUM CHLORIDE 0.9% 242 ML IV PRN (15:30)
[2019-01-30] MEDS: FENTANYL PF 2,500 MCG in SODIUM CHLORIDE 0.9% 200 ML IV PRN (17:24)
[2019-01-30] MEDS ORDERED: SODIUM CHLORIDE 0.9%, 500ML IVBOLUS ONE (19:00)
[2019-01-30] MEDS: FAMOTIDINE 20 MG/2 ML IVPush SCH (21:11)
[2019-01-31] MEDS: ALBUTEROL/IPRATROPIUM 2.5MG/0.5MG, 3 ML INLINE SCH ×6 (01:59→22:10)
[2019-01-31] MEDS: HEPARIN 5,000 UNITS/ML, 1ML SQ SCH ×3 (02:31→17:28)
[2019-01-31] MEDS: INSULIN LISPRO 100 UNITS/ML, PEN SQ-INSULIN SCH ×4 (04:00→21:53)
[2019-01-31 04:35] LABS: MEAN CORPUSCULAR HEMOGLOBIN 33.4 pg (27.5-34.5); MEAN CORPUSCULAR HGB CONC 31.7 g/dL (33.2-36.2); MEAN CORPUSCULAR VOLUME 105.6 fL (81-97); RED BLOOD COUNT 2.19 x10^6/uL (4.38-5.82); RED CELL DISTRIBUTION WIDTH 22.7 % (9.4-14.8)
[2019-01-31 04:38] LABS: HCT (SEDRATE) 23.1 % (39.2-51.8)
[2019-01-31 04:45] LABS: ALBUMIN 1.7 g/dL (3.4-5.0); ANION GAP 12 mmol/L (5-15); CALCIUM 8.1 mg/dL (8.5-10.1); CHLORIDE 110 mmol/L (98-107)
[2019-01-31 04:55] LABS: ALKALINE PHOSPHATASE 95 U/L (45-117); BILIRUBIN,TOTAL 0.2 mg/dL (0.2-1.0); CREATININE 3.61 mg/dL (0.7-1.3); TOTAL PROTEIN 4.9 g/dL (6.4-8.2)
[2019-01-31 04:56] LABS: ALANINE AMINOTRANSFERASE < 6 U/L (12-78)
[2019-01-31 05:47] LABS: MEAN PLATELET VOLUME 9.1 fL (7.4-10.4); PLATELET COUNT 69 x10^3/uL (130-400)
[2019-01-31 05:48] LABS: MD YES
[2019-01-31 06:03] LABS: BAND#(MANUAL) 0.23 x10^3/uL; BANDS%(MANUAL) 1 % (0-7); BLASTS # (MANUAL) 4.35 x10^3/uL (0-0); EOS#(MANUAL) 0.46 x10^3/uL (0.0-0.4); EOS% (MANUAL) 2 % (1-7); LYMPHS% (MANUAL) 31 % (22-44); MONOS#(MANUAL) 3.21 x10^3/uL (0.3-2.7); MONOS% (MANUAL) 14 % (2-9); SEG#(MANUAL) 7.56 x10^3/uL (1.8-6.8); SEGS% (MANUAL) 33 % (42-75)
[2019-01-31 06:05] LABS: <PLATELET ESTIMATE> DECREASED; <PLT MORPHOLOGY> NORMAL PLT MORPH; ANISOCYTOSIS 1+; POLYCHROMASIA 1+; SMUDGE CELLS 1+
[2019-01-31 06:10] LABS: BLASTS % (MANUAL) 19 % (0-0)
[2019-01-31] MEDS: SENNA/DOCUSATE TABLET PO SCH (07:17)
[2019-01-31] MEDS: SODIUM CHLORIDE FLUSH 10ML SYR IVF SCH ×2 (07:26→21:46)
[2019-01-31] MEDS: FUROSEMIDE 40 MG/4 ML IV SCH (07:27)
[2019-01-31] MEDS: MIDAZOLAM HCL 50 MG in SODIUM CHLORIDE 0.9% 240 ML IV PRN (07:37)
[2019-01-31] MEDS: QUETIAPINE 25MG TABLET PO SCH ×2 (09:30→21:45)
[2019-01-31] MEDS: ACETAMINOPHEN 325 MG TABLET PO PRN ×2 (09:30→14:50)
[2019-01-31] MEDS: CEFTRIAXONE PMX 2GM/50ML 50 ML IV SCH (10:21)
[2019-01-31 11:41] LABS: CLOSTRIDIUM DIFFICILE ANTIGEN NEGATIVE; CLOSTRIDIUM DIFFICILE TOXIN NEGATIVE (Negative)
[2019-01-31] MEDS: FUROSEMIDE 20 MG/2 ML IV SCH (17:28)
[2019-01-31] MEDS: FAMOTIDINE 20 MG/2 ML IVPush SCH (21:45)
[2019-02-01] MEDS: HEPARIN 5,000 UNITS/ML, 1ML SQ SCH ×3 (02:10→18:34)
[2019-02-01] MEDS: ALBUTEROL/IPRATROPIUM 2.5MG/0.5MG, 3 ML INLINE SCH ×6 (02:40→22:25)
[2019-02-01] MEDS: INSULIN LISPRO 100 UNITS/ML, PEN SQ-INSULIN SCH ×4 (04:00→22:00)
[2019-02-01 05:07] LABS: MEAN CORPUSCULAR HEMOGLOBIN 34.1 pg (27.5-34.5); MEAN CORPUSCULAR HGB CONC 32.5 g/dL (33.2-36.2); MEAN CORPUSCULAR VOLUME 104.7 fL (81-97); MEAN PLATELET VOLUME 9.1 fL (7.4-10.4); PLATELET COUNT 64 x10^3/uL (130-400); RED BLOOD COUNT 2.03 x10^6/uL (4.38-5.82)
[2019-02-01 05:55] VITALS: BP 125/53
[2019-02-01 06:00] LABS: ANION GAP 11 mmol/L (5-15); CALCIUM 8.6 mg/dL (8.5-10.1); CHLORIDE 113 mmol/L (98-107); CREATININE 3.28 mg/dL (0.7-1.3)
[2019-02-01 06:02] LABS: MD YES
[2019-02-01 06:15] VITALS: BP 125/53
[2019-02-01 06:27] VITALS: BP 132/62
[2019-02-01 06:28] LABS: BAND#(MANUAL) 1.81 x10^3/uL; BANDS%(MANUAL) 8 % (0-7); BLASTS # (MANUAL) 4.75 x10^3/uL (0-0); LYMPH#(MANUAL) 7.01 x10^3/uL (1-3.4); LYMPHS% (MANUAL) 31 % (22-44); MONOS#(MANUAL) 0.68 x10^3/uL (0.3-2.7); MONOS% (MANUAL) 3 % (2-9); MYELOCYTES# (MANUAL) 0.45 x10^3/uL (0-0); MYELOCYTES% (MANUAL) 2 % (0-0); NRBC % (MANUAL) 2 % (0-1); SEG#(MANUAL) 7.91 x10^3/uL (1.8-6.8); SEGS% (MANUAL) 35 % (42-75)
[2019-02-01 06:32] LABS: ANISOCYTOSIS 1+; BASOPHILLIC STIPPLING 1+; POLYCHROMASIA 1+
[2019-02-01 06:35] LABS: <PLATELET ESTIMATE> DECREASED; <PLT MORPHOLOGY> NORMAL PLT MORPH
[2019-02-01 06:57] LABS: BLASTS % (MANUAL) 21 % (0-0)
[2019-02-01 06:58] LABS: SMUDGE CELLS 1+
[2019-02-01] MEDS: SENNA/DOCUSATE TABLET PO SCH (07:36)
[2019-02-01] MEDS: SODIUM CHLORIDE FLUSH 10ML SYR IVF SCH ×2 (07:36→21:05)
[2019-02-01] MEDS: FUROSEMIDE 20 MG/2 ML IV SCH (07:42)
[2019-02-01] MEDS: ACETAMINOPHEN 325 MG TABLET PO PRN ×2 (07:43→15:54)
[2019-02-01] MEDS: QUETIAPINE 25MG TABLET PO SCH ×2 (07:43→21:04)
[2019-02-01 07:53] VITALS: BP 129/57
[2019-02-01] MEDS ORDERED: DEXMEDETOMIDINE 200 MCG in SODIUM CHLORIDE 0.9% 48 ML IV PRN (08:30)
[2019-02-01] MEDS: METHYLNALTREXONE 12 MG/0.6 ML SQ SCH (09:00)
[2019-02-01] MEDS: CEFTRIAXONE PMX 2GM/50ML 50 ML IV SCH (11:11)
[2019-02-01] MEDS ORDERED: DEXMEDETOMIDINE 1,000 MCG in SODIUM CHLORIDE 0.9% 240 ML IV PRN (13:00)
[2019-02-01] MEDS: DEXMEDETOMIDINE 1,000 MCG in SODIUM CHLORIDE 0.9% 240 ML IV PRN (13:13)
[2019-02-01] MEDS: FAMOTIDINE 20 MG/2 ML IVPush SCH (21:04)
[2019-02-02] MEDS: DEXMEDETOMIDINE 1,000 MCG in SODIUM CHLORIDE 0.9% 240 ML IV PRN ×3 (00:41→20:59)
[2019-02-02] MEDS: HEPARIN 5,000 UNITS/ML, 1ML SQ SCH ×3 (01:54→08:22)
[2019-02-02] MEDS: ALBUTEROL/IPRATROPIUM 2.5MG/0.5MG, 3 ML INLINE SCH ×6 (02:36→22:11)
[2019-02-02] MEDS: INSULIN LISPRO 100 UNITS/ML, PEN SQ-INSULIN SCH ×4 (04:00→20:54)
[2019-02-02 05:06] LABS: MEAN CORPUSCULAR HGB CONC 32.2 g/dL (33.2-36.2); MEAN CORPUSCULAR VOLUME 102.5 fL (81-97); MEAN PLATELET VOLUME 9.1 fL (7.4-10.4); PLATELET COUNT 62 x10^3/uL (130-400); RED BLOOD COUNT 2.14 x10^6/uL (4.38-5.82); RED CELL DISTRIBUTION WIDTH 22.1 % (9.4-14.8)
[2019-02-02 05:12] LABS: ALBUMIN 1.8 g/dL (3.4-5.0); ANION GAP 10 mmol/L (5-15); CALCIUM 8.2 mg/dL (8.5-10.1); CHLORIDE 113 mmol/L (98-107); CREATININE 2.69 mg/dL (0.7-1.3)
[2019-02-02 05:58] LABS: MD YES
[2019-02-02] MEDS: FENTANYL PF 2,500 MCG in SODIUM CHLORIDE 0.9% 200 ML IV PRN (05:59)
[2019-02-02 06:13] LABS: BAND#(MANUAL) 0.59 x10^3/uL; BANDS%(MANUAL) 3 % (0-7); LYMPH#(MANUAL) 8.67 x10^3/uL (1-3.4); LYMPHS% (MANUAL) 44 % (22-44); MONOS#(MANUAL) 1.18 x10^3/uL (0.3-2.7); MONOS% (MANUAL) 6 % (2-9); SEGS% (MANUAL) 32 % (42-75)
[2019-02-02 06:15] LABS: BLASTS # (MANUAL) 2.96 x10^3/uL (0-0); BLASTS % (MANUAL) 15 % (0-0)
[2019-02-02 06:16] LABS: ANISOCYTOSIS 1+
[2019-02-02 06:19] LABS: <PLATELET ESTIMATE> DECREASED; <PLT MORPHOLOGY> NORMAL PLT MORPH; SMUDGE CELLS 1+
[2019-02-02] MEDS: SENNA/DOCUSATE TABLET PO SCH (08:30)
[2019-02-02] MEDS: ACETAMINOPHEN 325 MG TABLET PO PRN (08:33)
[2019-02-02] MEDS: QUETIAPINE 25MG TABLET PO SCH ×2 (08:33→20:52)
[2019-02-02] MEDS: CHOLESTYRAMINE LIGHT 4GM PACKET NG SCH ×2 (08:33→20:52)
[2019-02-02] MEDS: SODIUM CHLORIDE FLUSH 10ML SYR IVF SCH ×2 (08:35→20:52)
[2019-02-02] MEDS: CEFTRIAXONE PMX 2GM/50ML 50 ML IV SCH (11:18)
[2019-02-02] MEDS: FAMOTIDINE 20 MG/2 ML IVPush SCH (20:52)
[2019-02-03] MEDS: HEPARIN 5,000 UNITS/ML, 1ML SQ SCH ×3 (02:00→18:00)
[2019-02-03] MEDS: ALBUTEROL/IPRATROPIUM 2.5MG/0.5MG, 3 ML INLINE SCH ×6 (02:03→21:35)
[2019-02-03] MEDS: INSULIN LISPRO 100 UNITS/ML, PEN SQ-INSULIN SCH ×4 (04:00→21:29)
[2019-02-03 04:34] LABS: ANION GAP 12 mmol/L (5-15); CALCIUM 7.9 mg/dL (8.5-10.1); CHLORIDE 110 mmol/L (98-107); CREATININE 2.34 mg/dL (0.7-1.3)
[2019-02-03 04:41] LABS: MEAN CORPUSCULAR HEMOGLOBIN 33.8 pg (27.5-34.5); MEAN CORPUSCULAR HGB CONC 32.3 g/dL (33.2-36.2); MEAN CORPUSCULAR VOLUME 104.7 fL (81-97); MEAN PLATELET VOLUME 9.3 fL (7.4-10.4); PLATELET COUNT 59 x10^3/uL (130-400); RED BLOOD COUNT 1.91 x10^6/uL (4.38-5.82); RED CELL DISTRIBUTION WIDTH 21.5 % (9.4-14.8)
[2019-02-03 05:52] LABS: MD YES
[2019-02-03] MEDS: DEXMEDETOMIDINE 1,000 MCG in SODIUM CHLORIDE 0.9% 240 ML IV PRN (05:59)
[2019-02-03 06:12] LABS: BAND#(MANUAL) 0.19 x10^3/uL; BANDS%(MANUAL) 1 % (0-7); BASOS#(MANUAL) 0.19 x10^3/uL (0-0.1); BASOS% (MANUAL) 1 % (0-1); EOS#(MANUAL) 0.19 x10^3/uL (0.0-0.4); EOS% (MANUAL) 1 % (1-7); LYMPH#(MANUAL) 8.88 x10^3/uL (1-3.4); LYMPHS% (MANUAL) 47 % (22-44); METAMYELOCYTES# (MANUAL) 0.38 x10^3/uL (0-0); METAMYELOCYTES% (MANUAL) 2 % (0-1); MYELOCYTES# (MANUAL) 0.19 x10^3/uL (0-0); MYELOCYTES% (MANUAL) 1 % (0-0); SEG#(MANUAL) 7.94 x10^3/uL (1.8-6.8); SEGS% (MANUAL) 42 % (42-75)
[2019-02-03 06:13] LABS: BLASTS # (MANUAL) 0.76 x10^3/uL (0-0); REACTIVE LYMPHS # (MANUAL) 0.19 x10^3/uL (0-0); REACTIVE LYMPHS % (MANUAL) 1 % (0-0)
[2019-02-03 06:27] LABS: <RBC MORPHOLOGY> NORMAL; ANISOCYTOSIS 1+; POLYCHROMASIA 1+; SMUDGE CELLS 1+
[2019-02-03 06:28] LABS: <PLT MORPHOLOGY> NORMAL PLT MORPH
[2019-02-03 06:30] VITALS: BP 90/46
[2019-02-03 06:31] LABS: <PLATELET ESTIMATE> DECREASED
[2019-02-03 06:33] LABS: BLASTS % (MANUAL) 4 % (0-0)
[2019-02-03 06:41] VITALS: BP 90/47
[2019-02-03] MEDS: FENTANYL PF 2,500 MCG in SODIUM CHLORIDE 0.9% 200 ML IV PRN (07:13)
[2019-02-03 07:14] VITALS: BP 99/53
[2019-02-03 07:50] VITALS: BP 92/47
[2019-02-03 08:00] VITALS: BP 102/65
[2019-02-03] MEDS: METHYLNALTREXONE 12 MG/0.6 ML SQ SCH (08:30)
[2019-02-03] MEDS: SENNA/DOCUSATE TABLET PO SCH (09:00)
[2019-02-03] MEDS: CHOLESTYRAMINE LIGHT 4GM PACKET NG SCH ×2 (09:00→21:21)
[2019-02-03] MEDS: SODIUM CHLORIDE FLUSH 10ML SYR IVF SCH ×2 (09:23→21:22)
[2019-02-03] MEDS: QUETIAPINE 25MG TABLET PO SCH ×2 (09:23→21:21)
[2019-02-03] MEDS: CEFTRIAXONE PMX 2GM/50ML 50 ML IV SCH (10:54)
[2019-02-03] MEDS: FAMOTIDINE 20 MG/2 ML IVPush SCH (21:21)
[2019-02-04] MEDS: ALBUTEROL/IPRATROPIUM 2.5MG/0.5MG, 3 ML INLINE SCH ×2 (02:15→06:30)
[2019-02-04] MEDS: INSULIN LISPRO 100 UNITS/ML, PEN SQ-INSULIN SCH ×4 (04:00→21:16)
[2019-02-04 04:31] LABS: ANION GAP 17 mmol/L (5-15); CHLORIDE 109 mmol/L (98-107); CREATININE 2.04 mg/dL (0.7-1.3)
[2019-02-04] MEDS: DEXMEDETOMIDINE 1,000 MCG in SODIUM CHLORIDE 0.9% 240 ML IV PRN (05:26)
[2019-02-04 05:36] LABS: MEAN CORPUSCULAR HGB CONC 33.5 g/dL (33.2-36.2); MEAN CORPUSCULAR VOLUME 101.6 fL (81-97); MEAN PLATELET VOLUME 9.8 fL (7.4-10.4); PLATELET COUNT 66 x10^3/uL (130-400); RED BLOOD COUNT 2.14 x10^6/uL (4.38-5.82); RED CELL DISTRIBUTION WIDTH 22.3 % (9.4-14.8)
[2019-02-04 05:58] LABS: MD YES
[2019-02-04 06:15] LABS: BAND#(MANUAL) 0.37 x10^3/uL; BANDS%(MANUAL) 2 % (0-7); EOS#(MANUAL) 0.18 x10^3/uL (0.0-0.4); EOS% (MANUAL) 1 % (1-7); LYMPH#(MANUAL) 8.46 x10^3/uL (1-3.4); LYMPHS% (MANUAL) 46 % (22-44); MONOS#(MANUAL) 0.18 x10^3/uL (0.3-2.7); MONOS% (MANUAL) 1 % (2-9); REACTIVE LYMPHS # (MANUAL) 0.18 x10^3/uL (0-0); REACTIVE LYMPHS % (MANUAL) 1 % (0-0); SEG#(MANUAL) 9.02 x10^3/uL (1.8-6.8); SEGS% (MANUAL) 49 % (42-75)
[2019-02-04 06:16] LABS: SMUDGE CELLS 1+
[2019-02-04 06:17] LABS: ANISOCYTOSIS 1+
[2019-02-04 06:18] LABS: <PLT MORPHOLOGY> NORMAL PLT MORPH; POLYCHROMASIA 1+
[2019-02-04 06:21] LABS: <PLATELET ESTIMATE> DECREASED
[2019-02-04] MEDS: SENNA/DOCUSATE TABLET PO SCH (07:52)
[2019-02-04] MEDS: CHOLESTYRAMINE LIGHT 4GM PACKET NG SCH ×2 (09:46→21:11)
[2019-02-04] MEDS: SODIUM CHLORIDE FLUSH 10ML SYR IVF SCH ×2 (09:48→21:11)
[2019-02-04] MEDS: ALBUTEROL/IPRATROPIUM 2.5MG/0.5MG, 3 ML NPPB SCH ×4 (10:35→20:19)
[2019-02-04] MEDS: CEFTRIAXONE PMX 2GM/50ML 50 ML IV SCH (11:36)
[2019-02-04] MEDS ORDERED: FENTANYL PF 100 MCG/2ML IVPush PRN (20:00)
[2019-02-05] MEDS: ALBUTEROL/IPRATROPIUM 2.5MG/0.5MG, 3 ML NPPB SCH ×2 (02:10→07:48)
[2019-02-05] MEDS: INSULIN LISPRO 100 UNITS/ML, PEN SQ-INSULIN SCH ×2 (04:00→10:06)
[2019-02-05 04:29] LABS: ANION GAP 13 mmol/L (5-15); CALCIUM 8.7 mg/dL (8.5-10.1); CHLORIDE 111 mmol/L (98-107); CREATININE 1.63 mg/dL (0.7-1.3)
[2019-02-05 04:33] LABS: MEAN CORPUSCULAR HEMOGLOBIN 33.5 pg (27.5-34.5); MEAN CORPUSCULAR HGB CONC 33.1 g/dL (33.2-36.2); MEAN CORPUSCULAR VOLUME 101.2 fL (81-97); RED BLOOD COUNT 2.33 x10^6/uL (4.38-5.82); RED CELL DISTRIBUTION WIDTH 21.4 % (9.4-14.8)
[2019-02-05 05:26] LABS: BASOPHILS # (AUTO) 0.52 x10^3/uL (0-0.1); BASOPHILS % (AUTO) 2 % (0-1); EOSINOPHILS # (AUTO) 0.12 x10^3/uL (0-0.4); EOSINOPHILS % (AUTO) 1 % (1-7); LYMPHOCYTES % (AUTO) 66 % (22-44); MD SCAN; MEAN PLATELET VOLUME 10.1 fL (7.4-10.4); MONOCYTES % (AUTO) 4 % (2-9); NEUTROPHILS # (AUTO) 6.72 x10^3/uL (1.8-6.8); NEUTROPHILS % (AUTO) 28 % (42-75); PLATELET COUNT 98 x10^3/uL (130-400)
[2019-02-05] MEDS ORDERED: POTASSIUM CHLORIDE 20 MEQ TAB.ER.PRT PO ONE (07:00)
[2019-02-05] MEDS: SENNA/DOCUSATE TABLET PO SCH (09:00)
[2019-02-05] MEDS: SODIUM CHLORIDE FLUSH 10ML SYR IVF SCH ×2 (10:04→21:00)
[2019-02-05] MEDS: CEFTRIAXONE PMX 2GM/50ML 50 ML IV SCH (10:35)
[2019-02-05] MEDS ORDERED: ALBUTEROL/IPRATROPIUM 2.5MG/0.5MG, 3 ML NPPB PRN (14:00)
[2019-02-06 04:28] LABS: MEAN CORPUSCULAR HEMOGLOBIN 33.1 pg (27.5-34.5); MEAN CORPUSCULAR HGB CONC 32.5 g/dL (33.2-36.2); MEAN CORPUSCULAR VOLUME 101.9 fL (81-97); MEAN PLATELET VOLUME 9.3 fL (7.4-10.4); PLATELET COUNT 118 x10^3/uL (130-400); RED BLOOD COUNT 2.32 x10^6/uL (4.38-5.82); RED CELL DISTRIBUTION WIDTH 21.3 % (9.4-14.8)
[2019-02-06 04:32] LABS: ALANINE AMINOTRANSFERASE 8 U/L (12-78); ALBUMIN 1.9 g/dL (3.4-5.0); ANION GAP 14 mmol/L (5-15); CALCIUM 8.8 mg/dL (8.5-10.1); CHLORIDE 111 mmol/L (98-107); CREATININE 1.38 mg/dL (0.7-1.3)
[2019-02-06 04:34] LABS: ALKALINE PHOSPHATASE 81 U/L (45-117); TOTAL PROTEIN 5.2 g/dL (6.4-8.2)
[2019-02-06 04:36] LABS: BILIRUBIN,TOTAL < 0.1 mg/dL (0.2-1.0)
[2019-02-06 05:12] LABS: BASOPHILS # (AUTO) 0.36 x10^3/uL (0-0.1); BASOPHILS % (AUTO) 2 % (0-1); EOSINOPHILS # (AUTO) 0.11 x10^3/uL (0-0.4); EOSINOPHILS % (AUTO) 1 % (1-7); LYMPHOCYTES # (AUTO) 14.77 x10^3/uL (1-3.4); LYMPHOCYTES % (AUTO) 66 % (22-44); MD SCAN; MONOCYTES # (AUTO) 0.61 x10^3/uL (0.2-0.8); MONOCYTES % (AUTO) 3 % (2-9); NEUTROPHILS # (AUTO) 6.53 x10^3/uL (1.8-6.8); NEUTROPHILS % (AUTO) 29 % (42-75)
[2019-02-06] MEDS ORDERED: POTASSIUM CHLORIDE 20 MEQ TAB.ER.PRT PO ONE (07:00)
[2019-02-06] MEDS: SENNA/DOCUSATE TABLET PO SCH (07:11)
[2019-02-06] MEDS: SODIUM CHLORIDE FLUSH 10ML SYR IVF SCH ×2 (07:19→20:37)
[2019-02-06] MEDS: DEXTROSE 5% 1,000 ML IV SCH ×2 (10:01→19:28)
[2019-02-06] MEDS: CEFTRIAXONE PMX 2GM/50ML 50 ML IV SCH (10:07)
[2019-02-06] MEDS: FUROSEMIDE 20 MG/2 ML IV SCH ×2 (10:30→22:09)
[2019-02-06] MEDS ORDERED: FUROSEMIDE 20 MG/2 ML IV ONE (10:30)
[2019-02-06] MEDS ORDERED: ALBUMIN HUMAN 25% 100 ML IV ONE (10:30)
[2019-02-06] MEDS: HEPARIN 5,000 UNITS/ML, 1ML SQ SCH ×2 (10:42→20:37)
[2019-02-06 11:38] LABS: HCT (SEDRATE) 24.4 % (39.2-51.8)
[2019-02-06] MEDS: ALBUTEROL/IPRATROPIUM 2.5MG/0.5MG, 3 ML NPPB SCH ×2 (13:31→19:51)
[2019-02-06] MEDS: ALBUMIN HUMAN 25% 100 ML IV SCH (20:37)
[2019-02-07 04:37] LABS: ALANINE AMINOTRANSFERASE 10 U/L (12-78); ALBUMIN 2.3 g/dL (3.4-5.0); ANION GAP 14 mmol/L (5-15); CALCIUM 9.3 mg/dL (8.5-10.1); CHLORIDE 109 mmol/L (98-107); CREATININE 1.32 mg/dL (0.7-1.3)
[2019-02-07 04:39] LABS: ALKALINE PHOSPHATASE 82 U/L (45-117); BILIRUBIN,TOTAL 0.3 mg/dL (0.2-1.0); TOTAL PROTEIN 5.5 g/dL (6.4-8.2)
[2019-02-07] MEDS: DEXTROSE 5% 1,000 ML IV SCH (05:17)
[2019-02-07 05:36] LABS: MEAN CORPUSCULAR HEMOGLOBIN 33.2 pg (27.5-34.5); MEAN CORPUSCULAR HGB CONC 32.3 g/dL (33.2-36.2); MEAN CORPUSCULAR VOLUME 102.7 fL (81-97); MEAN PLATELET VOLUME 9.4 fL (7.4-10.4); PLATELET COUNT 122 x10^3/uL (130-400); RED BLOOD COUNT 2.23 x10^6/uL (4.38-5.82); RED CELL DISTRIBUTION WIDTH 21.3 % (9.4-14.8)
[2019-02-07 05:37] LABS: BASOPHILS # (AUTO) 0.11 x10^3/uL (0-0.1); BASOPHILS % (AUTO) 1 % (0-1); EOSINOPHILS # (AUTO) 0.06 x10^3/uL (0-0.4); EOSINOPHILS % (AUTO) 0 % (1-7); LYMPHOCYTES # (AUTO) 12.48 x10^3/uL (1-3.4); LYMPHOCYTES % (AUTO) 58 % (22-44); MD MORPH REVIEW ONLY; MONOCYTES # (AUTO) 3.62 x10^3/uL (0.2-0.8); MONOCYTES % (AUTO) 17 % (2-9); NEUTROPHILS # (AUTO) 5.45 x10^3/uL (1.8-6.8); NEUTROPHILS % (AUTO) 25 % (42-75)
[2019-02-07 05:39] LABS: ANISOCYTOSIS 1+; MICROCYTOSIS 1+; POLYCHROMASIA 1+
[2019-02-07 05:40] LABS: <PLATELET ESTIMATE> DECREASED; <PLT MORPHOLOGY> NORMAL PLT MORPH; SMUDGE CELLS 1+
[2019-02-07] MEDS ORDERED: METRONIDAZOLE PMX 500MG/100ML 100 ML IV SCH (07:00)
[2019-02-07] MEDS: ALBUTEROL/IPRATROPIUM 2.5MG/0.5MG, 3 ML NPPB SCH (07:00)
[2019-02-07] MEDS ORDERED: ALBUTEROL/IPRATROPIUM 2.5MG/0.5MG, 3 ML NPPB PRN (07:30)
[2019-02-07] MEDS: ALBUMIN HUMAN 25% 100 ML IV SCH ×2 (08:46→22:20)
[2019-02-07] MEDS: FUROSEMIDE 20 MG/2 ML IV SCH ×2 (08:46→17:30)
[2019-02-07] MEDS: POTASSIUM CHLORIDE 20 MEQ TAB.ER.PRT PO SCH ×2 (11:19→17:30)
[2019-02-07] MEDS: HEPARIN 5,000 UNITS/ML, 1ML SQ SCH ×2 (11:19→21:08)
[2019-02-07] MEDS: SENNA/DOCUSATE TABLET PO SCH (11:20)
[2019-02-07] MEDS: SODIUM CHLORIDE FLUSH 10ML SYR IVF SCH ×2 (11:20→21:08)
[2019-02-07] MEDS: AMPICILLIN/SULBACTAM 3 GM in SODIUM CHLORIDE 0.9% 100 ML IV SCH ×2 (11:54→16:47)
[2019-02-07 20:51] VITALS: BP 157/74
[2019-02-08] MEDS: AMPICILLIN/SULBACTAM 3 GM in SODIUM CHLORIDE 0.9% 100 ML IV SCH ×2 (00:16→10:02)
[2019-02-08 02:51] VITALS: BP 155/82
[2019-02-08 07:24] VITALS: BP 151/73
[2019-02-08 07:26] LABS: ANION GAP 12 mmol/L (5-15); CALCIUM 10.2 mg/dL (8.5-10.1); CHLORIDE 111 mmol/L (98-107); CREATININE 1.26 mg/dL (0.7-1.3)
[2019-02-08 07:32] LABS: MEAN CORPUSCULAR HGB CONC 33.3 g/dL (33.2-36.2); MEAN CORPUSCULAR VOLUME 102.3 fL (81-97); MEAN PLATELET VOLUME 9.9 fL (7.4-10.4); PLATELET COUNT 152 x10^3/uL (130-400); RED CELL DISTRIBUTION WIDTH 21.5 % (9.4-14.8)
[2019-02-08] MEDS ORDERED: ETOMIDATE 20 MG/10 ML ONE (08:00)
[2019-02-08] MEDS ORDERED: PROPOFOL 10 MG/ML, 100ML IV ONE (08:00)
[2019-02-08] MEDS ORDERED: ROCURONIUM 10 MG/ML,10ML ONE (08:00)
[2019-02-08 08:17] LABS: MD YES
[2019-02-08 08:20] LABS: LYMPH#(MANUAL) 19.39 x10^3/uL (1-3.4); LYMPHS% (MANUAL) 69 % (22-44); MONOS#(MANUAL) 1.12 x10^3/uL (0.3-2.7); MONOS% (MANUAL) 4 % (2-9); SEG#(MANUAL) 7.59 x10^3/uL (1.8-6.8); SEGS% (MANUAL) 27 % (42-75)
[2019-02-08 08:21] LABS: <PLATELET ESTIMATE> ADEQUATE; <PLT MORPHOLOGY> NORMAL PLT MORPH; ANISOCYTOSIS 1+; MICROCYTOSIS 1+; POLYCHROMASIA 1+; SMUDGE CELLS 1+
[2019-02-08] MEDS: POTASSIUM CHLORIDE 20 MEQ TAB.ER.PRT PO SCH ×2 (09:33→17:09)
[2019-02-08] MEDS: SENNA/DOCUSATE TABLET PO SCH (09:33)
[2019-02-08] MEDS: FUROSEMIDE 20 MG/2 ML IV SCH ×2 (09:33→14:30)
[2019-02-08] MEDS: SODIUM CHLORIDE FLUSH 10ML SYR IVF SCH ×2 (09:33→22:30)
[2019-02-08] MEDS: ALBUMIN HUMAN 25% 100 ML IV SCH ×3 (09:36→15:26)
[2019-02-08] MEDS: HEPARIN 5,000 UNITS/ML, 1ML SQ SCH ×2 (09:47→17:09)
[2019-02-08] MEDS ORDERED: MAGNESIUM SULFATE PMX 2GM/50ML 50 ML IV ONE (10:00)
[2019-02-08] MEDS ORDERED: POTASSIUM CHLORIDE 20 MEQ in DEXTROSE 5% 1,000 ML IV SCH (10:30)
[2019-02-08 12:51] VITALS: BP 159/89
[2019-02-08] MEDS ORDERED: VANCOMYCIN PER PHARMACY MC PRN (13:30)
[2019-02-08] MEDS ORDERED: PHARMACOKINETIC MONITORING MC PRN (14:00)
[2019-02-08] MEDS: MEROPENEM 1 GM in SODIUM CHLORIDE 0.9% 100 ML IV SCH ×2 (14:12→22:30)
[2019-02-08] MEDS ORDERED: FUROSEMIDE 40 MG/4 ML IV ONE (14:30)
[2019-02-08 14:31] LABS: MICROSCOPIC INDICATED
[2019-02-08] MEDS ORDERED: FENTANYL PF 100 MCG/2ML ONE (14:38)
[2019-02-08 14:44] LABS: CULTURE INDICATED? NO
[2019-02-08] MEDS ORDERED: PROPOFOL 100 ML IV PRN (14:56)
[2019-02-08] MEDS ORDERED: FENTANYL PF 100 MCG/2ML IVPush ONE (15:00)
[2019-02-08] MEDS ORDERED: ETOMIDATE 20 MG/10 ML IVPush ONE (15:00)
[2019-02-08] MEDS ORDERED: PHARMACY MAY ADJ FOR RENAL FX MC SCH (15:00)
[2019-02-08] MEDS ORDERED: LIDOCAINE-MPF 1%, 2ML ENDO PRN (15:00)
[2019-02-08] MEDS ORDERED: ROCURONIUM 10 MG/ML,10ML IVPush ONE (15:00)
[2019-02-08] MEDS: ALBUTEROL/IPRATROPIUM 2.5MG/0.5MG, 3 ML INLINE SCH ×3 (15:00→22:24)
[2019-02-08 16:09] LABS: MICROSCOPIC INDICATED
[2019-02-08] MEDS: VANCOMYCIN 2,000 MG in SODIUM CHLORIDE 0.9% 500 ML IV SCH (16:23)
[2019-02-08 16:52] LABS: CULTURE INDICATED? NO
[2019-02-08 17:21] LABS: INTERNATIONAL NORMALIZED RATIO 1.01 (0.93-1.1); PROTHROMBIN TIME 10.6 Seconds (9.6-11.5)
[2019-02-08] MEDS: ACETAMINOPHEN 325 MG TABLET PO PRN (20:25)
[2019-02-08] MEDS: FENTANYL PF 100 MCG/2ML IVPush PRN (20:25)
[2019-02-08] MEDS ORDERED: FENTANYL PF 2,500 MCG in SODIUM CHLORIDE 0.9% 200 ML IV PRN (22:30)
[2019-02-08] MEDS: MIDAZOLAM HCL 25 MG in SODIUM CHLORIDE 0.9% 245 ML IV PRN (23:00)
[2019-02-09] MEDS: HEPARIN 5,000 UNITS/ML, 1ML SQ SCH ×3 (01:34→16:48)
[2019-02-09] MEDS: ACETAMINOPHEN 325 MG TABLET PO PRN (01:34)
[2019-02-09] MEDS: MIDAZOLAM HCL 25 MG in SODIUM CHLORIDE 0.9% 245 ML IV PRN ×3 (02:00→09:59)
[2019-02-09] MEDS: ALBUTEROL/IPRATROPIUM 2.5MG/0.5MG, 3 ML INLINE SCH ×6 (02:25→22:14)
[2019-02-09] MEDS: ALBUMIN HUMAN 25% 100 ML IV SCH ×2 (04:07→15:42)
[2019-02-09 04:20] LABS: MEAN CORPUSCULAR HGB CONC 32.1 g/dL (33.2-36.2); MEAN CORPUSCULAR VOLUME 102.8 fL (81-97); MEAN PLATELET VOLUME 9.3 fL (7.4-10.4); PLATELET COUNT 148 x10^3/uL (130-400); RED CELL DISTRIBUTION WIDTH 21.4 % (9.4-14.8)
[2019-02-09 04:28] LABS: ALANINE AMINOTRANSFERASE 11 U/L (12-78); ALBUMIN 2.8 g/dL (3.4-5.0); ANION GAP 10 mmol/L (5-15); CALCIUM 9.7 mg/dL (8.5-10.1); CHLORIDE 113 mmol/L (98-107); CREATININE 1.31 mg/dL (0.7-1.3)
[2019-02-09 04:31] LABS: ALKALINE PHOSPHATASE 71 U/L (45-117); BILIRUBIN,TOTAL 0.3 mg/dL (0.2-1.0); TOTAL PROTEIN 5.4 g/dL (6.4-8.2)
[2019-02-09 04:33] VITALS: BP 134/67
[2019-02-09] MEDS: FENTANYL PF 100 MCG/2ML IVPush PRN ×2 (05:06→09:29)
[2019-02-09] MEDS: FUROSEMIDE 20 MG/2 ML IV SCH (05:10)
[2019-02-09 05:58] LABS: MD YES
[2019-02-09] MEDS: MEROPENEM 1 GM in SODIUM CHLORIDE 0.9% 100 ML IV SCH ×3 (06:00→23:09)
[2019-02-09 06:52] LABS: LYMPH#(MANUAL) 10.34 x10^3/uL (1-3.4); LYMPHS% (MANUAL) 44 % (22-44); MONOS#(MANUAL) 0.71 x10^3/uL (0.3-2.7); MONOS% (MANUAL) 3 % (2-9); OTHER CELLS # (MANUAL) 9.64 x10^3/uL (0-0); OTHER CELLS % (MANUAL) 41 % (0-0); SEG#(MANUAL) 2.82 x10^3/uL (1.8-6.8); SEGS% (MANUAL) 12 % (42-75)
[2019-02-09 06:53] LABS: ANISOCYTOSIS 1+
[2019-02-09 06:54] LABS: <PLATELET ESTIMATE> ADEQUATE; <PLT MORPHOLOGY> NORMAL PLT MORPH; POLYCHROMASIA 1+
[2019-02-09] MEDS: POTASSIUM CHLORIDE 20 MEQ TAB.ER.PRT PO SCH (08:05)
[2019-02-09] MEDS: VANCOMYCIN 2,000 MG in SODIUM CHLORIDE 0.9% 500 ML IV SCH (08:05)
[2019-02-09] MEDS ORDERED: D5%-0.45NACL+KCL 40MEQ 1,000 ML IV SCH (08:30)
[2019-02-09] MEDS ORDERED: IBUPROFEN 100 MG/5 ML UDC NG PRN (08:30)
[2019-02-09] MEDS: FAMOTIDINE 20 MG/2 ML IVPush SCH ×2 (08:45→21:33)
[2019-02-09] MEDS: SENNA/DOCUSATE TABLET PO SCH (08:45)
[2019-02-09] MEDS: SODIUM CHLORIDE FLUSH 10ML SYR IVF SCH ×2 (08:45→21:33)
[2019-02-09 08:59] VITALS: BP 125/63
[2019-02-09 09:15] VITALS: BP 119/51
[2019-02-09 10:26] VITALS: BP 122/59
[2019-02-09 11:34] VITALS: BP 116/56
[2019-02-09] MEDS: MIDAZOLAM HCL 100 MG in SODIUM CHLORIDE 0.9% 230 ML IV PRN ×2 (13:09→23:10)
[2019-02-09] MEDS ORDERED: FENTANYL PF 2,500 MCG in SODIUM CHLORIDE 0.9% 200 ML IV PRN (14:00)
[2019-02-09] MEDS: FUROSEMIDE 40 MG/4 ML IV SCH (16:29)
[2019-02-09] MEDS: METHYLNALTREXONE 12 MG/0.6 ML SQ SCH (16:48)
[2019-02-10] VITALS (8 sets, daily range): BP systolic 107–120; BP diastolic 42–60
[2019-02-10] MEDS: HEPARIN 5,000 UNITS/ML, 1ML SQ SCH ×3 (02:15→18:36)
[2019-02-10] MEDS: VANCOMYCIN 2,000 MG in SODIUM CHLORIDE 0.9% 500 ML IV SCH ×2 (02:15→20:28)
[2019-02-10] MEDS: ALBUTEROL/IPRATROPIUM 2.5MG/0.5MG, 3 ML INLINE SCH ×6 (02:29→22:06)
[2019-02-10 04:18] LABS: MEAN CORPUSCULAR HEMOGLOBIN 33.1 pg (27.5-34.5); MEAN CORPUSCULAR HGB CONC 32.1 g/dL (33.2-36.2); MEAN CORPUSCULAR VOLUME 103.1 fL (81-97); RED BLOOD COUNT 2.17 x10^6/uL (4.38-5.82); RED CELL DISTRIBUTION WIDTH 23.8 % (9.4-14.8)
[2019-02-10 04:35] LABS: MD YES; MEAN PLATELET VOLUME 8.6 fL (7.4-10.4); PLATELET COUNT 160 x10^3/uL (130-400)
[2019-02-10 04:40] LABS: LYMPH#(MANUAL) 27.31 x10^3/uL (1-3.4); LYMPHS% (MANUAL) 82 % (22-44); SEG#(MANUAL) 5.99 x10^3/uL (1.8-6.8); SEGS% (MANUAL) 18 % (42-75)
[2019-02-10 04:41] LABS: ANISOCYTOSIS 1+; SMUDGE CELLS 1+
[2019-02-10 04:42] LABS: <PLATELET ESTIMATE> ADEQUATE; <PLT MORPHOLOGY> NORMAL PLT MORPH; POLYCHROMASIA 1+
[2019-02-10] MEDS: ALBUMIN HUMAN 25% 100 ML IV SCH (04:51)
[2019-02-10] MEDS: FUROSEMIDE 40 MG/4 ML IV SCH (05:54)
[2019-02-10] MEDS: MEROPENEM 1 GM in SODIUM CHLORIDE 0.9% 100 ML IV SCH ×3 (06:13→22:47)
[2019-02-10] MEDS: MIDAZOLAM HCL 100 MG in SODIUM CHLORIDE 0.9% 230 ML IV PRN ×2 (07:01→18:34)
[2019-02-10 07:17] LABS: ANION GAP 11 mmol/L (5-15); CALCIUM 8.9 mg/dL (8.5-10.1); CHLORIDE 115 mmol/L (98-107); CREATININE 1.44 mg/dL (0.7-1.3)
[2019-02-10] MEDS ORDERED: MAGNESIUM SULFATE PMX 2GM/50ML 50 ML IVPB ONE (08:30)
[2019-02-10] MEDS ORDERED: D5%-0.45NACL+KCL 40MEQ 1,000 ML IV SCH ×2 (08:30)
[2019-02-10] MEDS: SENNA/DOCUSATE TABLET PO SCH (09:38)
[2019-02-10] MEDS: HYDROmorphone 2MG TABLET PO SCH ×3 (09:38→20:28)
[2019-02-10] MEDS: DEXTROSE 5% 1,000 ML IV SCH ×2 (09:39→18:36)
[2019-02-10] MEDS: FAMOTIDINE 20 MG/2 ML IVPush SCH ×2 (09:39→20:28)
[2019-02-10] MEDS: SODIUM CHLORIDE FLUSH 10ML SYR IVF SCH ×2 (09:42→20:29)
[2019-02-10] MEDS: ACETAMINOPHEN 325 MG TABLET PO PRN ×2 (14:51→20:29)
[2019-02-10] MEDS: FENTANYL PF 2,500 MCG in SODIUM CHLORIDE 0.9% 200 ML IV PRN (18:35)
[2019-02-11] MEDS: ALBUTEROL/IPRATROPIUM 2.5MG/0.5MG, 3 ML INLINE SCH ×6 (02:27→22:15)
[2019-02-11] MEDS: HYDROmorphone 2MG TABLET PO SCH ×4 (03:02→20:11)
[2019-02-11] MEDS: HEPARIN 5,000 UNITS/ML, 1ML SQ SCH ×3 (03:02→20:11)
[2019-02-11] MEDS: MIDAZOLAM HCL 100 MG in SODIUM CHLORIDE 0.9% 230 ML IV PRN ×2 (04:38→16:19)
[2019-02-11 04:43] LABS: MEAN CORPUSCULAR HEMOGLOBIN 32.5 pg (27.5-34.5); MEAN CORPUSCULAR HGB CONC 32.1 g/dL (33.2-36.2); MEAN CORPUSCULAR VOLUME 101.2 fL (81-97); MEAN PLATELET VOLUME 9.1 fL (7.4-10.4); PLATELET COUNT 139 x10^3/uL (130-400); RED BLOOD COUNT 2.38 x10^6/uL (4.38-5.82); RED CELL DISTRIBUTION WIDTH 24.1 % (9.4-14.8)
[2019-02-11 04:59] VITALS: BP 98/43
[2019-02-11 05:01] LABS: MD YES
[2019-02-11 05:26] LABS: ALBUMIN 2.9 g/dL (3.4-5.0); ANION GAP 12 mmol/L (5-15); CALCIUM 8.5 mg/dL (8.5-10.1); CHLORIDE 114 mmol/L (98-107); CREATININE 1.72 mg/dL (0.7-1.3)
[2019-02-11] MEDS: MEROPENEM 1 GM in SODIUM CHLORIDE 0.9% 100 ML IV SCH ×3 (05:42→22:12)
[2019-02-11] MEDS ORDERED: FUROSEMIDE 20 MG/2 ML IV ONE (08:30)
[2019-02-11] MEDS: SENNA/DOCUSATE TABLET PO SCH (08:44)
[2019-02-11] MEDS: SODIUM CHLORIDE FLUSH 10ML SYR IVF SCH ×2 (08:44→20:11)
[2019-02-11] MEDS: FAMOTIDINE 20 MG/2 ML IVPush SCH ×2 (08:44→20:10)
[2019-02-11] MEDS: DEXTROSE 5% 1,000 ML IV SCH ×2 (08:45→18:15)
[2019-02-11 11:05] LABS: BAND#(MANUAL) 0.73 x10^3/uL; BANDS%(MANUAL) 2 % (0-7); LYMPH#(MANUAL) 14.31 x10^3/uL (1-3.4); LYMPHS% (MANUAL) 39 % (22-44); METAMYELOCYTES# (MANUAL) 0.37 x10^3/uL (0-0); METAMYELOCYTES% (MANUAL) 1 % (0-1); MYELOCYTES# (MANUAL) 0.37 x10^3/uL (0-0); MYELOCYTES% (MANUAL) 1 % (0-0); SEG#(MANUAL) 9.91 x10^3/uL (1.8-6.8); SEGS% (MANUAL) 27 % (42-75)
[2019-02-11 11:06] LABS: <PLATELET ESTIMATE> ADEQUATE; <PLT MORPHOLOGY> NORMAL PLT MORPH; ANISOCYTOSIS 1+; NRBC % (MANUAL) 2 % (0-1); OTHER CELLS # (MANUAL) 11.01 x10^3/uL (0-0); OTHER CELLS % (MANUAL) 30 % (0-0); POLYCHROMASIA 1+; SMUDGE CELLS 1+
[2019-02-11] MEDS ORDERED: METHYLNALTREXONE 12 MG/0.6 ML SYR SQ ONE (16:14)
[2019-02-11] MEDS: METHYLNALTREXONE 12 MG/0.6 ML SQ SCH (18:14)
[2019-02-11] MEDS: FENTANYL PF 2,500 MCG in SODIUM CHLORIDE 0.9% 200 ML IV PRN (23:32)
[2019-02-12] MEDS: ALBUTEROL/IPRATROPIUM 2.5MG/0.5MG, 3 ML INLINE SCH ×6 (02:14→22:55)
[2019-02-12] MEDS: HYDROmorphone 2MG TABLET PO SCH ×4 (03:02→21:11)
[2019-02-12] MEDS: HEPARIN 5,000 UNITS/ML, 1ML SQ SCH ×3 (03:03→21:11)
[2019-02-12 04:17] VITALS: BP 97/47
[2019-02-12] MEDS: DEXTROSE 5% 1,000 ML IV SCH ×2 (05:05→13:45)
[2019-02-12 05:36] LABS: MEAN CORPUSCULAR HEMOGLOBIN 32.8 pg (27.5-34.5); MEAN CORPUSCULAR HGB CONC 32.4 g/dL (33.2-36.2); MEAN CORPUSCULAR VOLUME 101.2 fL (81-97); MEAN PLATELET VOLUME 9.6 fL (7.4-10.4); PLATELET COUNT 124 x10^3/uL (130-400); RED BLOOD COUNT 2.29 x10^6/uL (4.38-5.82); RED CELL DISTRIBUTION WIDTH 23.1 % (9.4-14.8)
[2019-02-12 05:57] LABS: MD YES
[2019-02-12] MEDS: MIDAZOLAM HCL 100 MG in SODIUM CHLORIDE 0.9% 230 ML IV PRN (06:00)
[2019-02-12] MEDS: MEROPENEM 1 GM in SODIUM CHLORIDE 0.9% 100 ML IV SCH ×3 (06:02→23:24)
[2019-02-12 06:32] LABS: LYMPH#(MANUAL) 10.48 x10^3/uL (1-3.4); LYMPHS% (MANUAL) 25 % (22-44); MONOS#(MANUAL) 1.68 x10^3/uL (0.3-2.7); MONOS% (MANUAL) 4 % (2-9); SEG#(MANUAL) 8.38 x10^3/uL (1.8-6.8)
[2019-02-12 06:33] LABS: OTHER CELLS # (MANUAL) 21.37 x10^3/uL (0-0)
[2019-02-12 06:34] LABS: OTHER CELLS % (MANUAL) 51 % (0-0)
[2019-02-12 06:35] LABS: ANISOCYTOSIS 1+; POLYCHROMASIA 1+; SEGS% (MANUAL) 20 % (42-75); SMUDGE CELLS 1+
[2019-02-12 06:36] LABS: <PLATELET ESTIMATE> DECREASED; <PLT MORPHOLOGY> NORMAL PLT MORPH
[2019-02-12] MEDS: FAMOTIDINE 20 MG/2 ML IVPush SCH ×2 (09:21→21:11)
[2019-02-12] MEDS: FUROSEMIDE 40 MG/4 ML IV SCH ×2 (09:21→21:11)
[2019-02-12] MEDS: SENNA/DOCUSATE TABLET PO SCH (09:21)
[2019-02-12] MEDS: SODIUM CHLORIDE FLUSH 10ML SYR IVF SCH ×2 (09:21→21:12)
[2019-02-12] MEDS: KSCALE TO 4.5 IV SCH ×3 (10:00→22:00)
[2019-02-12] MEDS ORDERED: FUROSEMIDE 40 MG/4 ML IV SCH (10:00)
[2019-02-12] MEDS ORDERED: POTASSIUM CHLORIDE 20 MEQ TAB.ER.PRT PO ONE ×2 (12:30→18:30)
[2019-02-12] MEDS: DEXMEDETOMIDINE 200 MCG in SODIUM CHLORIDE 0.9% 48 ML IV PRN (18:41)
[2019-02-12] MEDS: [UNRECOGNIZED DRUG - REMARK] MC SCH (23:12)
[2019-02-12] MEDS ORDERED: POTASSIUM CHLORIDE 10% 20 MEQ/15 ML UDC PO ONE (23:30)
[2019-02-12] MEDS ORDERED: POTASSIUM CHLORIDE 10% 20 MEQ/15 ML UDC NG ONE (23:30)
[2019-02-13] MEDS: DEXMEDETOMIDINE 200 MCG in SODIUM CHLORIDE 0.9% 48 ML IV PRN ×4 (00:24→15:40)
[2019-02-13] MEDS: DEXTROSE 5% 1,000 ML IV SCH (00:24)
[2019-02-13] MEDS: ALBUTEROL/IPRATROPIUM 2.5MG/0.5MG, 3 ML INLINE SCH ×6 (02:53→22:18)
[2019-02-13] MEDS: HYDROmorphone 2MG TABLET PO SCH (03:37)
[2019-02-13] MEDS: HEPARIN 5,000 UNITS/ML, 1ML SQ SCH ×3 (03:37→19:55)
[2019-02-13 04:37] LABS: MEAN CORPUSCULAR HEMOGLOBIN 33.5 pg (27.5-34.5); MEAN CORPUSCULAR HGB CONC 33.4 g/dL (33.2-36.2); MEAN CORPUSCULAR VOLUME 100.3 fL (81-97); MEAN PLATELET VOLUME 9.8 fL (7.4-10.4); PLATELET COUNT 131 x10^3/uL (130-400); RED CELL DISTRIBUTION WIDTH 22.5 % (9.4-14.8)
[2019-02-13] MEDS: [UNRECOGNIZED DRUG - REMARK] MC SCH ×4 (05:11→22:39)
[2019-02-13] MEDS: MEROPENEM 1 GM in SODIUM CHLORIDE 0.9% 100 ML IV SCH ×3 (05:11→22:59)
[2019-02-13] MEDS ORDERED: POTASSIUM CHLORIDE 10% 20 MEQ/15 ML UDC NG ONE ×2 (05:30→23:00)
[2019-02-13 05:44] LABS: MD YES
[2019-02-13 06:02] LABS: BAND#(MANUAL) 0.81 x10^3/uL; BANDS%(MANUAL) 2 % (0-7); METAMYELOCYTES% (MANUAL) 1 % (0-1); MONOS% (MANUAL) 1 % (2-9)
[2019-02-13 06:03] LABS: SEG#(MANUAL) 5.66 x10^3/uL (1.8-6.8); SEGS% (MANUAL) 14 % (42-75)
[2019-02-13 06:04] LABS: LYMPH#(MANUAL) 16.56 x10^3/uL (1-3.4); LYMPHS% (MANUAL) 41 % (22-44); OTHER CELLS # (MANUAL) 16.56 x10^3/uL (0-0)
[2019-02-13 06:05] LABS: ANISOCYTOSIS 1+; OTHER CELLS % (MANUAL) 41 % (0-0)
[2019-02-13 06:06] LABS: POLYCHROMASIA 1+
[2019-02-13 06:07] LABS: <PLATELET ESTIMATE> ADEQUATE; <PLT MORPHOLOGY> NORMAL PLT MORPH; SMUDGE CELLS 2+
[2019-02-13 07:10] LABS: ANION GAP 10 mmol/L (5-15); CALCIUM 8.1 mg/dL (8.5-10.1); CHLORIDE 108 mmol/L (98-107); CREATININE 1.52 mg/dL (0.7-1.3)
[2019-02-13] MEDS: HALOPERIDOL 5 MG/ML IV PRN ×2 (09:00→16:37)
[2019-02-13] MEDS: FAMOTIDINE 20 MG/2 ML IVPush SCH ×2 (09:05→19:55)
[2019-02-13] MEDS: SENNA/DOCUSATE TABLET PO SCH (09:05)
[2019-02-13] MEDS: SODIUM CHLORIDE FLUSH 10ML SYR IVF SCH ×2 (09:05→19:55)
[2019-02-13] MEDS: FUROSEMIDE 40 MG/4 ML IV SCH ×2 (09:05→19:55)
[2019-02-13] MEDS: FENTANYL PF 2,500 MCG in SODIUM CHLORIDE 0.9% 200 ML IV PRN (11:39)
[2019-02-13] MEDS ORDERED: POTASSIUM CHLORIDE PMX 100 ML IV ONE (12:00)
[2019-02-13] MEDS ORDERED: POTASSIUM CHLORIDE 20 MEQ TAB.ER.PRT PO ONE ×2 (12:30→17:00)
[2019-02-13] MEDS: METHYLNALTREXONE 12 MG/0.6 ML SQ SCH (16:30)
[2019-02-13] MEDS ORDERED: PROPOFOL 100 ML IV ONE (17:31)
[2019-02-13] MEDS: PROPOFOL 100 ML IV PRN (22:59)
[2019-02-14] MEDS: ALBUTEROL/IPRATROPIUM 2.5MG/0.5MG, 3 ML INLINE SCH ×6 (02:28→22:06)
[2019-02-14] MEDS: HEPARIN 5,000 UNITS/ML, 1ML SQ SCH ×3 (03:41→19:59)
[2019-02-14 04:33] LABS: MEAN CORPUSCULAR HEMOGLOBIN 32.9 pg (27.5-34.5); MEAN CORPUSCULAR HGB CONC 33.1 g/dL (33.2-36.2); MEAN CORPUSCULAR VOLUME 99.4 fL (81-97); MEAN PLATELET VOLUME 9.6 fL (7.4-10.4); PLATELET COUNT 129 x10^3/uL (130-400); RED BLOOD COUNT 2.43 x10^6/uL (4.38-5.82); RED CELL DISTRIBUTION WIDTH 22.4 % (9.4-14.8)
[2019-02-14 04:51] LABS: CHLORIDE 107 mmol/L (98-107)
[2019-02-14 04:58] LABS: ANION GAP 11 mmol/L (5-15); CALCIUM 8.8 mg/dL (8.5-10.1); CREATININE 1.26 mg/dL (0.7-1.3); TRIGLYCERIDES 429 mg/dL (50-200)
[2019-02-14] MEDS: [UNRECOGNIZED DRUG - REMARK] MC SCH ×4 (05:12→23:12)
[2019-02-14 05:37] LABS: MD YES
[2019-02-14 05:40] LABS: BAND#(MANUAL) 0.43 x10^3/uL; BANDS%(MANUAL) 1 % (0-7); MONOS#(MANUAL) 0.43 x10^3/uL (0.3-2.7); MONOS% (MANUAL) 1 % (2-9); OTHER CELLS # (MANUAL) 15.37 x10^3/uL (0-0)
[2019-02-14 05:42] LABS: LYMPH#(MANUAL) 20.92 x10^3/uL (1-3.4); LYMPHS% (MANUAL) 49 % (22-44); SEG#(MANUAL) 5.55 x10^3/uL (1.8-6.8); SEGS% (MANUAL) 13 % (42-75)
[2019-02-14 05:43] LABS: OTHER CELLS % (MANUAL) 36 % (0-0)
[2019-02-14 05:45] LABS: ANISOCYTOSIS 1+; POLYCHROMASIA 1+; SMUDGE CELLS 2+
[2019-02-14 05:46] LABS: <PLATELET ESTIMATE> ADEQUATE; <PLT MORPHOLOGY> NORMAL PLT MORPH
[2019-02-14] MEDS: PROPOFOL 100 ML IV PRN ×3 (05:56→14:05)
[2019-02-14] MEDS: MEROPENEM 1 GM in SODIUM CHLORIDE 0.9% 100 ML IV SCH ×3 (05:56→22:46)
[2019-02-14] MEDS: SENNA/DOCUSATE TABLET PO SCH (07:15)
[2019-02-14] MEDS: FAMOTIDINE 20 MG/2 ML IVPush SCH ×2 (07:24→20:01)
[2019-02-14] MEDS: SODIUM CHLORIDE FLUSH 10ML SYR IVF SCH ×2 (07:25→20:01)
[2019-02-14] MEDS: FUROSEMIDE 40 MG/4 ML IV SCH ×2 (07:27→21:13)
[2019-02-14 11:54] LABS: ANION GAP 11 mmol/L (5-15); CALCIUM 9.2 mg/dL (8.5-10.1); CHLORIDE 106 mmol/L (98-107)
[2019-02-14] MEDS ORDERED: POTASSIUM CHLORIDE 20 MEQ TAB.ER.PRT ONE (12:32)
[2019-02-14] MEDS ORDERED: POTASSIUM CHLORIDE 20 MEQ TAB.ER.PRT PO ONE ×2 (13:00→17:00)
[2019-02-14] MEDS: MIDAZOLAM HCL 50 MG in SODIUM CHLORIDE 0.9% 240 ML IV PRN (17:12)
[2019-02-14] MEDS: FENTANYL PF 2,500 MCG in SODIUM CHLORIDE 0.9% 200 ML IV PRN (18:39)
[2019-02-14] MEDS: ACETAMINOPHEN 325 MG TABLET PO PRN (20:01)
[2019-02-14] MEDS ORDERED: POTASSIUM CHLORIDE 10% 20 MEQ/15 ML UDC NG ONE (23:00)
[2019-02-15] MEDS: MIDAZOLAM HCL 50 MG in SODIUM CHLORIDE 0.9% 240 ML IV PRN ×2 (01:34→14:14)
[2019-02-15] MEDS: ALBUTEROL/IPRATROPIUM 2.5MG/0.5MG, 3 ML INLINE SCH ×6 (02:04→23:00)
[2019-02-15] MEDS: HEPARIN 5,000 UNITS/ML, 1ML SQ SCH ×3 (03:56→20:00)
[2019-02-15 04:29] LABS: MEAN CORPUSCULAR HEMOGLOBIN 32.5 pg (27.5-34.5); MEAN CORPUSCULAR HGB CONC 32.7 g/dL (33.2-36.2); MEAN CORPUSCULAR VOLUME 99.2 fL (81-97); MEAN PLATELET VOLUME 8.9 fL (7.4-10.4); PLATELET COUNT 132 x10^3/uL (130-400); RED BLOOD COUNT 2.49 x10^6/uL (4.38-5.82); RED CELL DISTRIBUTION WIDTH 22.3 % (9.4-14.8)
[2019-02-15 04:34] LABS: ANION GAP 9 mmol/L (5-15); CALCIUM 9.8 mg/dL (8.5-10.1); CHLORIDE 106 mmol/L (98-107); CREATININE 1.11 mg/dL (0.7-1.3)
[2019-02-15] MEDS: [UNRECOGNIZED DRUG - REMARK] MC SCH ×4 (05:12→23:10)
[2019-02-15 05:37] LABS: MD YES
[2019-02-15] MEDS: ACETAMINOPHEN 325 MG TABLET PO PRN ×3 (05:40→20:16)
[2019-02-15] MEDS: MEROPENEM 1 GM in SODIUM CHLORIDE 0.9% 100 ML IV SCH ×3 (05:41→23:05)
[2019-02-15 05:49] LABS: BAND#(MANUAL) 0.43 x10^3/uL; BANDS%(MANUAL) 1 % (0-7); LYMPH#(MANUAL) 19.17 x10^3/uL (1-3.4); LYMPHS% (MANUAL) 45 % (22-44); MONOS#(MANUAL) 0.43 x10^3/uL (0.3-2.7); MONOS% (MANUAL) 1 % (2-9); SEG#(MANUAL) 8.95 x10^3/uL (1.8-6.8); SEGS% (MANUAL) 21 % (42-75)
[2019-02-15 05:50] LABS: <PLATELET ESTIMATE> ADEQUATE; <PLT MORPHOLOGY> NORMAL PLT MORPH; ANISOCYTOSIS 1+; OTHER CELLS # (MANUAL) 13.63 x10^3/uL (0-0); OTHER CELLS % (MANUAL) 32 % (0-0); POLYCHROMASIA 1+; SMUDGE CELLS 1+
[2019-02-15] MEDS ORDERED: POTASSIUM CHLORIDE 10% 20 MEQ/15 ML UDC NG ONE ×4 (06:00→23:30)
[2019-02-15] MEDS ORDERED: POTASSIUM CHLORIDE 10% 40 MEQ/30 ML UDC ONE (06:05)
[2019-02-15] MEDS: SENNA/DOCUSATE TABLET PO SCH (09:00)
[2019-02-15] MEDS: FUROSEMIDE 40 MG/4 ML IV SCH ×2 (09:25→20:15)
[2019-02-15] MEDS: SODIUM CHLORIDE FLUSH 10ML SYR IVF SCH ×2 (09:25→20:15)
[2019-02-15] MEDS: FAMOTIDINE 20 MG/2 ML IVPush SCH ×2 (09:25→20:15)
[2019-02-15] MEDS: METHYLNALTREXONE 12 MG/0.6 ML SQ SCH (12:30)
[2019-02-15] MEDS ORDERED: POTASSIUM CHLORIDE PMX 100 ML IV ONE (12:30)
[2019-02-16] MEDS: ALBUTEROL/IPRATROPIUM 2.5MG/0.5MG, 3 ML INLINE SCH ×6 (02:16→23:08)
[2019-02-16 04:37] LABS: MEAN CORPUSCULAR HEMOGLOBIN 32.8 pg (27.5-34.5); MEAN CORPUSCULAR HGB CONC 32.7 g/dL (33.2-36.2); MEAN CORPUSCULAR VOLUME 100.3 fL (81-97); MEAN PLATELET VOLUME 9.1 fL (7.4-10.4); PLATELET COUNT 125 x10^3/uL (130-400); RED BLOOD COUNT 2.47 x10^6/uL (4.38-5.82); RED CELL DISTRIBUTION WIDTH 21.6 % (9.4-14.8)
[2019-02-16 04:56] LABS: ANION GAP 10 mmol/L (5-15); CALCIUM 10.8 mg/dL (8.5-10.1); CHLORIDE 103 mmol/L (98-107); CREATININE 1.24 mg/dL (0.7-1.3)
[2019-02-16] MEDS: [UNRECOGNIZED DRUG - REMARK] MC SCH ×4 (05:12→23:12)
[2019-02-16] MEDS ORDERED: POTASSIUM CHLORIDE 10% 20 MEQ/15 ML UDC NG ONE (05:30)
[2019-02-16] MEDS: HEPARIN 5,000 UNITS/ML, 1ML SQ SCH ×3 (05:46→21:02)
[2019-02-16] MEDS: MEROPENEM 1 GM in SODIUM CHLORIDE 0.9% 100 ML IV SCH (05:47)
[2019-02-16 05:56] LABS: MD YES
[2019-02-16 06:12] LABS: BAND#(MANUAL) 0.44 x10^3/uL; BANDS%(MANUAL) 1 % (0-7); LYMPH#(MANUAL) 20.88 x10^3/uL (1-3.4); LYMPHS% (MANUAL) 48 % (22-44); MONOS#(MANUAL) 0.44 x10^3/uL (0.3-2.7); MONOS% (MANUAL) 1 % (2-9); OTHER CELLS # (MANUAL) 16.53 x10^3/uL (0-0); OTHER CELLS % (MANUAL) 38 % (0-0); SEG#(MANUAL) 5.22 x10^3/uL (1.8-6.8); SEGS% (MANUAL) 12 % (42-75)
[2019-02-16 06:13] LABS: <PLATELET ESTIMATE> ADEQUATE; <PLT MORPHOLOGY> NORMAL PLT MORPH; ANISOCYTOSIS 1+; POLYCHROMASIA 1+; SMUDGE CELLS 1+
[2019-02-16] MEDS: SENNA/DOCUSATE TABLET PO SCH (09:00)
[2019-02-16] MEDS: FUROSEMIDE 40 MG/4 ML IV SCH (09:08)
[2019-02-16] MEDS: FAMOTIDINE 20 MG/2 ML IVPush SCH ×2 (09:08→21:02)
[2019-02-16] MEDS: SODIUM CHLORIDE FLUSH 10ML SYR IVF SCH ×2 (09:09→21:01)
[2019-02-16] MEDS: AcetaZOLAMIDE INJ 500 MG IVPush SCH ×2 (09:16→17:43)
[2019-02-16] MEDS ORDERED: POTASSIUM CHLORIDE 10% 20 MEQ/15 ML UDC PO ONE ×2 (11:00→23:30)
[2019-02-16] MEDS ORDERED: POTASSIUM CHLORIDE 10% 40 MEQ/30 ML UDC ONE (11:45)
[2019-02-16] MEDS: ACETAMINOPHEN 325 MG TABLET PO PRN (11:47)
[2019-02-16] MEDS: MIDAZOLAM HCL 50 MG in SODIUM CHLORIDE 0.9% 240 ML IV PRN ×2 (11:49→19:48)
[2019-02-16] MEDS: FENTANYL PF 2,500 MCG in SODIUM CHLORIDE 0.9% 200 ML IV PRN (17:43)
[2019-02-16] MEDS ORDERED: POTASSIUM CHLORIDE PMX 100 ML IV ONE (23:30)
[2019-02-17] MEDS: ALBUTEROL/IPRATROPIUM 2.5MG/0.5MG, 3 ML INLINE SCH ×6 (02:23→22:48)
[2019-02-17] MEDS: MIDAZOLAM HCL 50 MG in SODIUM CHLORIDE 0.9% 240 ML IV PRN ×3 (02:29→17:36)
[2019-02-17] MEDS: HEPARIN 5,000 UNITS/ML, 1ML SQ SCH ×3 (04:04→20:34)
[2019-02-17 04:44] LABS: MEAN CORPUSCULAR HEMOGLOBIN 32.7 pg (27.5-34.5); MEAN CORPUSCULAR HGB CONC 32.3 g/dL (33.2-36.2); MEAN CORPUSCULAR VOLUME 101.4 fL (81-97); MEAN PLATELET VOLUME 8.7 fL (7.4-10.4); PLATELET COUNT 118 x10^3/uL (130-400); RED CELL DISTRIBUTION WIDTH 21.6 % (9.4-14.8)
[2019-02-17 04:52] LABS: ANION GAP 13 mmol/L (5-15); CALCIUM 10.1 mg/dL (8.5-10.1); CHLORIDE 105 mmol/L (98-107); CREATININE 1.37 mg/dL (0.7-1.3); TRIGLYCERIDES 534 mg/dL (50-200)
[2019-02-17] MEDS: [UNRECOGNIZED DRUG - REMARK] MC SCH (05:12)
[2019-02-17 05:34] LABS: MD YES
[2019-02-17 05:43] LABS: LYMPH#(MANUAL) 20.16 x10^3/uL (1-3.4); LYMPHS% (MANUAL) 47 % (22-44); MONOS#(MANUAL) 0.43 x10^3/uL (0.3-2.7); MONOS% (MANUAL) 1 % (2-9); OTHER CELLS % (MANUAL) 38 % (0-0); SEG#(MANUAL) 6.01 x10^3/uL (1.8-6.8); SEGS% (MANUAL) 14 % (42-75)
[2019-02-17 05:44] LABS: ANISOCYTOSIS 1+; POLYCHROMASIA 1+; SMUDGE CELLS 1+
[2019-02-17 05:48] LABS: <PLATELET ESTIMATE> DECREASED; <PLT MORPHOLOGY> NORMAL PLT MORPH
[2019-02-17] MEDS: AcetaZOLAMIDE INJ 500 MG IVPush SCH ×2 (07:44→16:55)
[2019-02-17] MEDS: FAMOTIDINE 20 MG/2 ML IVPush SCH ×2 (08:01→20:34)
[2019-02-17] MEDS: FUROSEMIDE 40 MG/4 ML IV SCH (08:02)
[2019-02-17] MEDS: SODIUM CHLORIDE FLUSH 10ML SYR IVF SCH ×2 (08:02→20:37)
[2019-02-17] MEDS: SENNA/DOCUSATE TABLET PO SCH (08:02)
[2019-02-17] MEDS: POTASSIUM CHLORIDE 10% 40 MEQ/30 ML UDC PO SCH (08:02)
[2019-02-17] MEDS: METHYLNALTREXONE 12 MG/0.6 ML SQ SCH (16:55)
[2019-02-17] MEDS: FENTANYL PF 2,500 MCG in SODIUM CHLORIDE 0.9% 200 ML IV PRN (21:37)
[2019-02-18] MEDS: ALBUTEROL/IPRATROPIUM 2.5MG/0.5MG, 3 ML INLINE SCH ×6 (02:33→22:25)
[2019-02-18] MEDS: HEPARIN 5,000 UNITS/ML, 1ML SQ SCH ×3 (04:07→20:29)
[2019-02-18 04:43] LABS: MEAN CORPUSCULAR HGB CONC 32.1 g/dL (33.2-36.2); MEAN CORPUSCULAR VOLUME 102.8 fL (81-97); MEAN PLATELET VOLUME 8.9 fL (7.4-10.4); PLATELET COUNT 104 x10^3/uL (130-400); RED BLOOD COUNT 2.25 x10^6/uL (4.38-5.82); RED CELL DISTRIBUTION WIDTH 21.9 % (9.4-14.8)
[2019-02-18 04:53] LABS: CHLORIDE 106 mmol/L (98-107)
[2019-02-18 05:02] LABS: ANION GAP 15 mmol/L (5-15); CALCIUM 9.8 mg/dL (8.5-10.1); CREATININE 1.42 mg/dL (0.7-1.3)
[2019-02-18 05:52] LABS: MD YES
[2019-02-18 06:01] LABS: LYMPH#(MANUAL) 18.58 x10^3/uL (1-3.4); LYMPHS% (MANUAL) 48 % (22-44); OTHER CELLS % (MANUAL) 46 % (0-0); SEG#(MANUAL) 2.32 x10^3/uL (1.8-6.8); SEGS% (MANUAL) 6 % (42-75)
[2019-02-18 06:04] LABS: ANISOCYTOSIS 1+
[2019-02-18 06:05] LABS: <PLATELET ESTIMATE> DECREASED; <PLT MORPHOLOGY> NORMAL PLT MORPH; SMUDGE CELLS 1+
[2019-02-18] MEDS: MIDAZOLAM HCL 50 MG in SODIUM CHLORIDE 0.9% 240 ML IV PRN ×3 (06:31→21:44)
[2019-02-18] MEDS: AcetaZOLAMIDE INJ 500 MG IVPush SCH ×2 (07:48→16:36)
[2019-02-18] MEDS: SENNA/DOCUSATE TABLET PO SCH (09:00)
[2019-02-18] MEDS: FUROSEMIDE 40 MG/4 ML IV SCH (09:20)
[2019-02-18] MEDS: POTASSIUM CHLORIDE 10% 40 MEQ/30 ML UDC PO SCH (09:20)
[2019-02-18] MEDS: FAMOTIDINE 20 MG/2 ML IVPush SCH ×2 (09:20→20:29)
[2019-02-18] MEDS: SODIUM CHLORIDE FLUSH 10ML SYR IVF SCH ×2 (09:21→20:29)
[2019-02-19] MEDS: FENTANYL PF 2,500 MCG in SODIUM CHLORIDE 0.9% 200 ML IV PRN (01:37)
[2019-02-19] MEDS: ALBUTEROL/IPRATROPIUM 2.5MG/0.5MG, 3 ML INLINE SCH ×6 (02:50→22:01)
[2019-02-19] MEDS: MIDAZOLAM HCL 50 MG in SODIUM CHLORIDE 0.9% 240 ML IV PRN ×3 (03:43→17:35)
[2019-02-19] MEDS: HEPARIN 5,000 UNITS/ML, 1ML SQ SCH ×3 (04:25→20:33)
[2019-02-19 04:29] LABS: MEAN CORPUSCULAR HEMOGLOBIN 33.7 pg (27.5-34.5); MEAN CORPUSCULAR HGB CONC 32.4 g/dL (33.2-36.2); MEAN CORPUSCULAR VOLUME 104.2 fL (81-97); MEAN PLATELET VOLUME 9.9 fL (7.4-10.4); PLATELET COUNT 101 x10^3/uL (130-400); RED BLOOD COUNT 2.12 x10^6/uL (4.38-5.82); RED CELL DISTRIBUTION WIDTH 22.3 % (9.4-14.8)
[2019-02-19 04:31] LABS: ANION GAP 16 mmol/L (5-15); CALCIUM 9.4 mg/dL (8.5-10.1); CHLORIDE 108 mmol/L (98-107); CREATININE 1.56 mg/dL (0.7-1.3)
[2019-02-19 05:42] LABS: MD YES
[2019-02-19 05:47] LABS: EOS#(MANUAL) 1.16 x10^3/uL (0.0-0.4); EOS% (MANUAL) 3 % (1-7); LYMPHS% (MANUAL) 46 % (22-44); SEG#(MANUAL) 6.19 x10^3/uL (1.8-6.8); SEGS% (MANUAL) 16 % (42-75)
[2019-02-19 05:48] LABS: ANISOCYTOSIS 1+; OTHER CELLS # (MANUAL) 13.55 x10^3/uL (0-0); OTHER CELLS % (MANUAL) 35 % (0-0)
[2019-02-19 05:49] LABS: <PLATELET ESTIMATE> DECREASED; <PLT MORPHOLOGY> NORMAL PLT MORPH; SMUDGE CELLS 1+
[2019-02-19 05:50] LABS: POLYCHROMASIA 1+
[2019-02-19] MEDS: SENNA/DOCUSATE TABLET PO SCH (08:32)
[2019-02-19] MEDS: FUROSEMIDE 40 MG/4 ML IV SCH (08:32)
[2019-02-19] MEDS: AcetaZOLAMIDE INJ 500 MG IVPush SCH (08:32)
[2019-02-19] MEDS: POTASSIUM CHLORIDE 10% 40 MEQ/30 ML UDC PO SCH (08:32)
[2019-02-19] MEDS: FAMOTIDINE 20 MG/2 ML IVPush SCH ×2 (08:32→20:33)
[2019-02-19] MEDS: SODIUM CHLORIDE FLUSH 10ML SYR IVF SCH ×2 (08:32→20:33)
[2019-02-19] MEDS: METHYLNALTREXONE 12 MG/0.6 ML SQ SCH (17:05)
[2019-02-19] MEDS ORDERED: ACETAMINOPHEN 650 MG/20.3 ML UDC ONE (18:38)
[2019-02-19] MEDS: ACETAMINOPHEN 650 MG/20.3 ML UDC PO PRN (18:41)
[2019-02-20] MEDS: ALBUTEROL/IPRATROPIUM 2.5MG/0.5MG, 3 ML INLINE SCH ×7 (02:03→23:00)
[2019-02-20 04:18] LABS: MEAN CORPUSCULAR HEMOGLOBIN 33.6 pg (27.5-34.5); MEAN CORPUSCULAR HGB CONC 32.1 g/dL (33.2-36.2); MEAN CORPUSCULAR VOLUME 104.4 fL (81-97); MEAN PLATELET VOLUME 9.1 fL (7.4-10.4); PLATELET COUNT 95 x10^3/uL (130-400); RED BLOOD COUNT 2.26 x10^6/uL (4.38-5.82); RED CELL DISTRIBUTION WIDTH 21.7 % (9.4-14.8)
[2019-02-20] MEDS: HEPARIN 5,000 UNITS/ML, 1ML SQ SCH ×3 (04:19→22:43)
[2019-02-20 04:27] LABS: ANION GAP 12 mmol/L (5-15); CALCIUM 9.3 mg/dL (8.5-10.1); CHLORIDE 110 mmol/L (98-107); CREATININE 1.36 mg/dL (0.7-1.3); TRIGLYCERIDES 747 mg/dL (50-200)
[2019-02-20 04:29] LABS: MD YES
[2019-02-20 04:34] LABS: EOS#(MANUAL) 0.81 x10^3/uL (0.0-0.4); EOS% (MANUAL) 2 % (1-7); LYMPH#(MANUAL) 15.83 x10^3/uL (1-3.4); LYMPHS% (MANUAL) 39 % (22-44); MONOS#(MANUAL) 1.62 x10^3/uL (0.3-2.7); MONOS% (MANUAL) 4 % (2-9); SEG#(MANUAL) 8.93 x10^3/uL (1.8-6.8); SEGS% (MANUAL) 22 % (42-75)
[2019-02-20 04:35] LABS: ANISOCYTOSIS 1+; NRBC % (MANUAL) 1 % (0-1); OTHER CELLS % (MANUAL) 33 % (0-0); POLYCHROMASIA 1+
[2019-02-20 04:36] LABS: <PLATELET ESTIMATE> DECREASED; <PLT MORPHOLOGY> NORMAL PLT MORPH; SMUDGE CELLS 1+
[2019-02-20] MEDS: FENTANYL PF 2,500 MCG in SODIUM CHLORIDE 0.9% 200 ML IV PRN (04:49)
[2019-02-20] MEDS: MIDAZOLAM HCL 50 MG in SODIUM CHLORIDE 0.9% 240 ML IV PRN (04:49)
[2019-02-20] MEDS: SENNA/DOCUSATE TABLET PO SCH (07:17)
[2019-02-20] MEDS: SODIUM CHLORIDE FLUSH 10ML SYR IVF SCH ×2 (08:19→20:29)
[2019-02-20] MEDS: DEXMEDETOMIDINE 1,000 MCG in SODIUM CHLORIDE 0.9% 240 ML IV PRN ×2 (08:19→22:43)
[2019-02-20] MEDS: FAMOTIDINE 20 MG/2 ML IVPush SCH ×2 (08:19→20:29)
[2019-02-20] MEDS: ACETAMINOPHEN 650 MG/20.3 ML UDC PO PRN (10:46)
[2019-02-20 15:04] LABS: MICROSCOPIC INDICATED
[2019-02-20 15:19] LABS: CULTURE INDICATED? NO
[2019-02-21] MEDS: ALBUTEROL/IPRATROPIUM 2.5MG/0.5MG, 3 ML INLINE SCH ×6 (02:25→21:31)
[2019-02-21 04:30] LABS: ANION GAP 14 mmol/L (5-15); CALCIUM 9.7 mg/dL (8.5-10.1); CHLORIDE 112 mmol/L (98-107)
[2019-02-21 04:42] LABS: MD YES; MEAN CORPUSCULAR HEMOGLOBIN 33.2 pg (27.5-34.5); MEAN CORPUSCULAR HGB CONC 31.9 g/dL (33.2-36.2); MEAN CORPUSCULAR VOLUME 104.2 fL (81-97); MEAN PLATELET VOLUME 9.3 fL (7.4-10.4); PLATELET COUNT 76 x10^3/uL (130-400); RED BLOOD COUNT 2.22 x10^6/uL (4.38-5.82)
[2019-02-21 04:51] LABS: BAND#(MANUAL) 0.29 x10^3/uL; BANDS%(MANUAL) 1 % (0-7); EOS#(MANUAL) 0.29 x10^3/uL (0.0-0.4); EOS% (MANUAL) 1 % (1-7); LYMPH#(MANUAL) 11.35 x10^3/uL (1-3.4); LYMPHS% (MANUAL) 39 % (22-44); MONOS#(MANUAL) 0.58 x10^3/uL (0.3-2.7); MONOS% (MANUAL) 2 % (2-9); SEG#(MANUAL) 6.11 x10^3/uL (1.8-6.8); SEGS% (MANUAL) 21 % (42-75)
[2019-02-21 04:52] LABS: <PLATELET ESTIMATE> DECREASED; <PLT MORPHOLOGY> NORMAL PLT MORPH; ANISOCYTOSIS 1+; OTHER CELLS # (MANUAL) 10.48 x10^3/uL (0-0); OTHER CELLS % (MANUAL) 36 % (0-0); POLYCHROMASIA 1+; SMUDGE CELLS 1+
[2019-02-21] MEDS: HEPARIN 5,000 UNITS/ML, 1ML SQ SCH ×3 (06:02→22:11)
[2019-02-21] MEDS: ACETAMINOPHEN 650 MG/20.3 ML UDC PO PRN ×2 (06:05→22:11)
[2019-02-21] MEDS: SODIUM CHLORIDE FLUSH 10ML SYR IVF SCH ×2 (07:44→22:11)
[2019-02-21] MEDS: DEXMEDETOMIDINE 1,000 MCG in SODIUM CHLORIDE 0.9% 240 ML IV PRN ×3 (07:45→22:14)
[2019-02-21] MEDS: FENTANYL PF 2,500 MCG in SODIUM CHLORIDE 0.9% 200 ML IV PRN (07:46)
[2019-02-21] MEDS: SENNA/DOCUSATE TABLET PO SCH (09:00)
[2019-02-21] MEDS: FAMOTIDINE 20 MG/2 ML IVPush SCH ×2 (09:27→22:11)
[2019-02-21] MEDS: POTASSIUM CHLORIDE 40 MEQ in DEXTROSE 5% 1,000 ML IV SCH (09:59)
[2019-02-21 11:24] LABS: CLOSTRIDIUM DIFFICILE ANTIGEN NEGATIVE; CLOSTRIDIUM DIFFICILE TOXIN NEGATIVE (Negative)
[2019-02-21] MEDS ORDERED: DEXTROSE 5% IV PRN (11:30)
[2019-02-21] MEDS ORDERED: MIDAZOLAM HCL IV PRN (11:30)
[2019-02-21] MEDS ORDERED: ALBUTEROL/IPRATROPIUM 2.5MG/0.5MG, 3 ML NPPB PRN (19:00)
[2019-02-22] MEDS: ALBUTEROL/IPRATROPIUM 2.5MG/0.5MG, 3 ML INLINE SCH ×6 (01:39→22:16)
[2019-02-22] MEDS: DEXMEDETOMIDINE 1,000 MCG in SODIUM CHLORIDE 0.9% 240 ML IV PRN (04:13)
[2019-02-22 04:38] LABS: MEAN CORPUSCULAR HEMOGLOBIN 33.3 pg (27.5-34.5); MEAN CORPUSCULAR HGB CONC 31.8 g/dL (33.2-36.2); MEAN CORPUSCULAR VOLUME 104.8 fL (81-97); MEAN PLATELET VOLUME 9.3 fL (7.4-10.4); PLATELET COUNT 76 x10^3/uL (130-400); RED BLOOD COUNT 2.14 x10^6/uL (4.38-5.82); RED CELL DISTRIBUTION WIDTH 22.4 % (9.4-14.8)
[2019-02-22 04:44] LABS: ANION GAP 12 mmol/L (5-15); CALCIUM 9.5 mg/dL (8.5-10.1); CHLORIDE 116 mmol/L (98-107); CREATININE 1.06 mg/dL (0.7-1.3)
[2019-02-22] MEDS: HEPARIN 5,000 UNITS/ML, 1ML SQ SCH ×2 (05:43→17:27)
[2019-02-22 05:49] LABS: MD YES
[2019-02-22 05:53] LABS: BANDS%(MANUAL) 1 % (0-7); EOS% (MANUAL) 3 % (1-7); LYMPH#(MANUAL) 13.55 x10^3/uL (1-3.4); LYMPHS% (MANUAL) 45 % (22-44); MONOS% (MANUAL) 3 % (2-9); SEG#(MANUAL) 8.13 x10^3/uL (1.8-6.8); SEGS% (MANUAL) 27 % (42-75)
[2019-02-22 05:54] LABS: <PLATELET ESTIMATE> DECREASED; <PLT MORPHOLOGY> NORMAL PLT MORPH; ANISOCYTOSIS 1+; OTHER CELLS # (MANUAL) 6.32 x10^3/uL (0-0); OTHER CELLS % (MANUAL) 21 % (0-0); POLYCHROMASIA 1+
[2019-02-22] MEDS ORDERED: DEXTROSE 5% 1,000 ML IV SCH ×2 (08:30)
[2019-02-22] MEDS: FAMOTIDINE 20 MG/2 ML IVPush SCH ×2 (08:46→20:00)
[2019-02-22] MEDS: SENNA/DOCUSATE TABLET PO SCH (08:47)
[2019-02-22] MEDS: SODIUM CHLORIDE FLUSH 10ML SYR IVF SCH ×2 (09:00→20:00)
[2019-02-22] MEDS: PROPOFOL 100 ML IV PRN ×3 (12:17→20:41)
[2019-02-22] MEDS: FENTANYL IV PRN (12:42)
[2019-02-22] MEDS: DEXTROSE 5% IV PRN (12:42)
[2019-02-22] MEDS: POTASSIUM CHLORIDE 40 MEQ in DEXTROSE 5% 1,000 ML IV SCH (12:55)
[2019-02-22 17:20] LABS: CULTURE INDICATED? YES; MICROSCOPIC INDICATED
[2019-02-22] MEDS: PIPERACILLIN/TAZO/PMX 3.375GM 50 ML IV SCH ×2 (17:23→23:18)
[2019-02-23] MEDS: PROPOFOL 100 ML IV PRN ×5 (00:07→16:22)
[2019-02-23] MEDS: HEPARIN 5,000 UNITS/ML, 1ML SQ SCH ×2 (00:59→08:10)
[2019-02-23] MEDS: POTASSIUM CHLORIDE 40 MEQ in DEXTROSE 5% 1,000 ML IV SCH (00:59)
[2019-02-23] MEDS: ALBUTEROL/IPRATROPIUM 2.5MG/0.5MG, 3 ML INLINE SCH ×6 (02:26→22:05)
[2019-02-23 04:39] LABS: MEAN CORPUSCULAR HEMOGLOBIN 34.2 pg (27.5-34.5); MEAN CORPUSCULAR HGB CONC 32.5 g/dL (33.2-36.2); MEAN PLATELET VOLUME 9.6 fL (7.4-10.4); PLATELET COUNT 77 x10^3/uL (130-400); RED BLOOD COUNT 1.94 x10^6/uL (4.38-5.82); RED CELL DISTRIBUTION WIDTH 22.5 % (9.4-14.8)
[2019-02-23 04:48] LABS: ANION GAP 16 mmol/L (5-15); CALCIUM 9.5 mg/dL (8.5-10.1); CHLORIDE 111 mmol/L (98-107); CREATININE 1.07 mg/dL (0.7-1.3)
[2019-02-23 04:49] LABS: TRIGLYCERIDES 732 mg/dL (50-200)
[2019-02-23] MEDS: PIPERACILLIN/TAZO/PMX 3.375GM 50 ML IV SCH ×4 (04:59→22:16)
[2019-02-23 06:10] LABS: MD YES
[2019-02-23 06:51] LABS: LYMPH#(MANUAL) 7.68 x10^3/uL (1-3.4); LYMPHS% (MANUAL) 19 % (22-44); SEG#(MANUAL) 6.06 x10^3/uL (1.8-6.8); SEGS% (MANUAL) 15 % (42-75)
[2019-02-23 06:52] LABS: OTHER CELLS # (MANUAL) 26.66 x10^3/uL (0-0)
[2019-02-23 06:58] LABS: OTHER CELLS % (MANUAL) 66 % (0-0)
[2019-02-23 06:59] LABS: <PLATELET ESTIMATE> DECREASED; <PLT MORPHOLOGY> NORMAL PLT MORPH; ANISOCYTOSIS 1+; POLYCHROMASIA 1+
[2019-02-23 07:00] LABS: SMUDGE CELLS 1+
[2019-02-23] MEDS: SENNA/DOCUSATE TABLET PO SCH (07:44)
[2019-02-23] MEDS: FAMOTIDINE 20 MG/2 ML IVPush SCH ×2 (07:45→22:16)
[2019-02-23] MEDS: SODIUM CHLORIDE FLUSH 10ML SYR IVF SCH ×2 (07:46→21:45)
[2019-02-23] MEDS ORDERED: QUETIAPINE 25MG TABLET NG SCH (09:00)
[2019-02-23 09:21] VITALS: BP 116/49
[2019-02-23] MEDS ORDERED: NOREPINEPHRINE 1 MG/ML, 4ML ONE (09:47)
[2019-02-23] MEDS ORDERED: ALBUMIN HUMAN 5% 500 ML IV ONE (10:00)
[2019-02-23] MEDS ORDERED: NOREPINEPHRINE 4 MG in SODIUM CHLORIDE 0.9% 246 ML IV PRN (10:00)
[2019-02-23 10:36] LABS: ALANINE AMINOTRANSFERASE 14 U/L (12-78); ALBUMIN 2.4 g/dL (3.4-5.0); ANION GAP 17 mmol/L (5-15); CALCIUM 9.2 mg/dL (8.5-10.1); CHLORIDE 111 mmol/L (98-107); CREATININE 1.16 mg/dL (0.7-1.3)
[2019-02-23 10:40] LABS: ALKALINE PHOSPHATASE 110 U/L (45-117); BILIRUBIN,TOTAL 0.3 mg/dL (0.2-1.0); TOTAL PROTEIN 5.2 g/dL (6.4-8.2); TROPONIN I < 0.015 ng/mL (0.000-0.045)
[2019-02-23 11:21] LABS: MD YES; MEAN CORPUSCULAR HEMOGLOBIN 33.6 pg (27.5-34.5); MEAN CORPUSCULAR HGB CONC 31.9 g/dL (33.2-36.2); MEAN CORPUSCULAR VOLUME 105.5 fL (81-97); MEAN PLATELET VOLUME 10.1 fL (7.4-10.4); PLATELET COUNT 81 x10^3/uL (130-400); RED CELL DISTRIBUTION WIDTH 22.7 % (9.4-14.8)
[2019-02-23 11:30] LABS: BAND#(MANUAL) 0.29 x10^3/uL; BANDS%(MANUAL) 1 % (0-7); LYMPH#(MANUAL) 11.48 x10^3/uL (1-3.4); LYMPHS% (MANUAL) 40 % (22-44); MONOS#(MANUAL) 0.29 x10^3/uL (0.3-2.7); MONOS% (MANUAL) 1 % (2-9); SEG#(MANUAL) 3.73 x10^3/uL (1.8-6.8); SEGS% (MANUAL) 13 % (42-75)
[2019-02-23 11:32] LABS: OTHER CELLS # (MANUAL) 12.92 x10^3/uL (0-0); OTHER CELLS % (MANUAL) 45 % (0-0)
[2019-02-23 11:33] LABS: <PLATELET ESTIMATE> DECREASED; <PLT MORPHOLOGY> NORMAL PLT MORPH; ANISOCYTOSIS 1+; POLYCHROMASIA 1+; SMUDGE CELLS 1+
[2019-02-23] MEDS ORDERED: POTASSIUM CHLORIDE 20 MEQ in SODIUM CHLORIDE 0.9% 250 ML IV ONE (12:00)
[2019-02-23 12:12] VITALS: BP 118/50
[2019-02-23 12:27] VITALS: BP 131/63
[2019-02-23 12:45] VITALS: BP 114/48
[2019-02-23 13:15] VITALS: BP 113/48
[2019-02-23 15:00] VITALS: BP 125/59
[2019-02-23] MEDS: LINEZOLID PMX 600MG/300ML 300 ML IV SCH (15:02)
[2019-02-23] MEDS: FENTANYL IV PRN (16:19)
[2019-02-23] MEDS: DEXTROSE 5% IV PRN (16:19)
[2019-02-23] MEDS: QUETIAPINE 25MG TABLET NG SCH (21:45)
[2019-02-24] MEDS: LINEZOLID PMX 600MG/300ML 300 ML IV SCH ×2 (00:30→13:13)
[2019-02-24] MEDS: ALBUTEROL/IPRATROPIUM 2.5MG/0.5MG, 3 ML INLINE SCH ×6 (02:32→23:00)
[2019-02-24] MEDS: POTASSIUM CHLORIDE 40 MEQ in DEXTROSE 5% 1,000 ML IV SCH (03:40)
[2019-02-24] MEDS: PROPOFOL 100 ML IV PRN ×4 (03:41→16:11)
[2019-02-24] MEDS: PIPERACILLIN/TAZO/PMX 3.375GM 50 ML IV SCH (04:17)
[2019-02-24 04:43] LABS: MEAN CORPUSCULAR HEMOGLOBIN 33.5 pg (27.5-34.5); MEAN CORPUSCULAR HGB CONC 32.6 g/dL (33.2-36.2); MEAN CORPUSCULAR VOLUME 102.6 fL (81-97); MEAN PLATELET VOLUME 9.9 fL (7.4-10.4); PLATELET COUNT 84 x10^3/uL (130-400); RED BLOOD COUNT 2.27 x10^6/uL (4.38-5.82); RED CELL DISTRIBUTION WIDTH 22.4 % (9.4-14.8)
[2019-02-24 04:52] LABS: ANION GAP 11 mmol/L (5-15); CALCIUM 9.6 mg/dL (8.5-10.1); CHLORIDE 113 mmol/L (98-107); CREATININE 0.98 mg/dL (0.7-1.3)
[2019-02-24 05:50] LABS: MD YES
[2019-02-24 05:55] LABS: ANISOCYTOSIS 1+; BAND#(MANUAL) 0.28 x10^3/uL; BANDS%(MANUAL) 1 % (0-7); EOS#(MANUAL) 0.28 x10^3/uL (0.0-0.4); EOS% (MANUAL) 1 % (1-7); LYMPH#(MANUAL) 9.94 x10^3/uL (1-3.4); LYMPHS% (MANUAL) 35 % (22-44); METAMYELOCYTES# (MANUAL) 0.28 x10^3/uL (0-0); METAMYELOCYTES% (MANUAL) 1 % (0-1); MONOS#(MANUAL) 0.28 x10^3/uL (0.3-2.7); MONOS% (MANUAL) 1 % (2-9); NRBC % (MANUAL) 1 % (0-1); OTHER CELLS # (MANUAL) 11.64 x10^3/uL (0-0); OTHER CELLS % (MANUAL) 41 % (0-0); SEG#(MANUAL) 5.68 x10^3/uL (1.8-6.8); SEGS% (MANUAL) 20 % (42-75)
[2019-02-24 05:56] LABS: <PLATELET ESTIMATE> DECREASED; <PLT MORPHOLOGY> NORMAL PLT MORPH; POLYCHROMASIA 1+
[2019-02-24 06:12] LABS: SMUDGE CELLS 1+
[2019-02-24] MEDS: SENNA/DOCUSATE TABLET PO SCH (08:50)
[2019-02-24] MEDS: FAMOTIDINE 20 MG/2 ML IVPush SCH ×2 (08:54→21:00)
[2019-02-24] MEDS: SODIUM CHLORIDE FLUSH 10ML SYR IVF SCH ×2 (08:54→21:00)
[2019-02-24] MEDS: QUETIAPINE 25MG TABLET NG SCH ×2 (08:54→21:00)
[2019-02-24] MEDS: MEROPENEM 1 GM in SODIUM CHLORIDE 0.9% 100 ML IV SCH ×2 (12:32→20:37)
[2019-02-25] MEDS: LINEZOLID PMX 600MG/300ML 300 ML IV SCH (00:56)
[2019-02-25] MEDS: ALBUTEROL/IPRATROPIUM 2.5MG/0.5MG, 3 ML INLINE SCH ×6 (02:47→22:35)
[2019-02-25] MEDS: MEROPENEM 1 GM in SODIUM CHLORIDE 0.9% 100 ML IV SCH ×3 (04:42→20:38)
[2019-02-25 04:44] LABS: MEAN CORPUSCULAR HEMOGLOBIN 33.7 pg (27.5-34.5); MEAN CORPUSCULAR HGB CONC 32.7 g/dL (33.2-36.2); MEAN PLATELET VOLUME 9.2 fL (7.4-10.4); PLATELET COUNT 85 x10^3/uL (130-400); RED BLOOD COUNT 2.16 x10^6/uL (4.38-5.82); RED CELL DISTRIBUTION WIDTH 22.5 % (9.4-14.8)
[2019-02-25 04:49] LABS: ANION GAP 16 mmol/L (5-15); CALCIUM 9.2 mg/dL (8.5-10.1); CHLORIDE 112 mmol/L (98-107); CREATININE 1.14 mg/dL (0.7-1.3)
[2019-02-25 05:43] LABS: MD YES
[2019-02-25 05:45] LABS: BAND#(MANUAL) 0.23 x10^3/uL; BANDS%(MANUAL) 1 % (0-7); SEG#(MANUAL) 4.16 x10^3/uL (1.8-6.8); SEGS% (MANUAL) 18 % (42-75)
[2019-02-25 05:47] LABS: LYMPH#(MANUAL) 12.01 x10^3/uL (1-3.4); LYMPHS% (MANUAL) 52 % (22-44)
[2019-02-25 05:48] LABS: OTHER CELLS % (MANUAL) 29 % (0-0)
[2019-02-25 05:49] LABS: <PLATELET ESTIMATE> DECREASED; <PLT MORPHOLOGY> NORMAL PLT MORPH; ANISOCYTOSIS 1+; POLYCHROMASIA 1+
[2019-02-25 05:53] LABS: SMUDGE CELLS 1+
[2019-02-25] MEDS: PROPOFOL 100 ML IV PRN (06:54)
[2019-02-25] MEDS: SENNA/DOCUSATE TABLET PO SCH (08:19)
[2019-02-25] MEDS: QUETIAPINE 25MG TABLET NG SCH ×2 (08:56→20:56)
[2019-02-25] MEDS: SODIUM CHLORIDE FLUSH 10ML SYR IVF SCH ×3 (08:56→20:38)
[2019-02-25] MEDS ORDERED: POTASSIUM CHLORIDE 40 MEQ in SODIUM CHLORIDE 0.9% 500 ML IV ONE (09:00)
[2019-02-25] MEDS ORDERED: DEXTROSE 50%, 50ML VIAL IVPush ONE (09:30)
[2019-02-25] MEDS ORDERED: DEXTROSE 4 GM TAB.CHEW PO PRN (09:30)
[2019-02-25] MEDS ORDERED: GLUCAGON 1 MG IM PRN (09:30)
[2019-02-25] MEDS ORDERED: DEXTROSE 50%, 50ML SYRINGE IVPush PRN (09:30)
[2019-02-25] MEDS: MIDAZOLAM HCL 25 MG in SODIUM CHLORIDE 0.9% 245 ML IV PRN ×2 (09:46→21:10)
[2019-02-25] MEDS: POTASSIUM CHLORIDE 40 MEQ in DEXTROSE 10% 1,000 ML IV SCH (14:55)
[2019-02-26] MEDS: MIDAZOLAM HCL 25 MG in SODIUM CHLORIDE 0.9% 245 ML IV PRN ×4 (02:12→16:20)
[2019-02-26] MEDS: ALBUTEROL/IPRATROPIUM 2.5MG/0.5MG, 3 ML INLINE SCH ×6 (02:19→22:04)
[2019-02-26 05:19] LABS: MEAN CORPUSCULAR HEMOGLOBIN 33.6 pg (27.5-34.5); MEAN CORPUSCULAR HGB CONC 32.2 g/dL (33.2-36.2); MEAN CORPUSCULAR VOLUME 104.3 fL (81-97); MEAN PLATELET VOLUME 9.1 fL (7.4-10.4); PLATELET COUNT 90 x10^3/uL (130-400); RED BLOOD COUNT 2.17 x10^6/uL (4.38-5.82); RED CELL DISTRIBUTION WIDTH 23.2 % (9.4-14.8)
[2019-02-26] MEDS: MEROPENEM 1 GM in SODIUM CHLORIDE 0.9% 100 ML IV SCH ×3 (05:19→20:17)
[2019-02-26 05:22] LABS: ANION GAP 16 mmol/L (5-15); CALCIUM 8.9 mg/dL (8.5-10.1); CHLORIDE 113 mmol/L (98-107)
[2019-02-26 05:25] LABS: TRIGLYCERIDES 589 mg/dL (50-200)
[2019-02-26 05:49] LABS: MD YES
[2019-02-26 06:18] LABS: BAND#(MANUAL) 0.77 x10^3/uL; BANDS%(MANUAL) 3 % (0-7); EOS#(MANUAL) 0.26 x10^3/uL (0.0-0.4); EOS% (MANUAL) 1 % (1-7); LYMPH#(MANUAL) 8.48 x10^3/uL (1-3.4); LYMPHS% (MANUAL) 33 % (22-44); MONOS#(MANUAL) 0.51 x10^3/uL (0.3-2.7); MONOS% (MANUAL) 2 % (2-9); OTHER CELLS # (MANUAL) 9.51 x10^3/uL (0-0); OTHER CELLS % (MANUAL) 37 % (0-0); SEG#(MANUAL) 6.17 x10^3/uL (1.8-6.8); SEGS% (MANUAL) 24 % (42-75)
[2019-02-26 06:25] LABS: <PLATELET ESTIMATE> DECREASED; <PLT MORPHOLOGY> NORMAL PLT MORPH; ANISOCYTOSIS 1+; POLYCHROMASIA 1+
[2019-02-26] MEDS: PANTOPRAZOLE 40 MG IV IVPush SCH (06:39)
[2019-02-26] MEDS: FENTANYL IV PRN (08:58)
[2019-02-26] MEDS: DEXTROSE 5% IV PRN (08:58)
[2019-02-26] MEDS: SENNA/DOCUSATE TABLET PO SCH (09:19)
[2019-02-26] MEDS: SODIUM CHLORIDE FLUSH 10ML SYR IVF SCH ×2 (09:19→20:18)
[2019-02-26] MEDS: QUETIAPINE 25MG TABLET NG SCH ×2 (09:19→20:18)
[2019-02-26] MEDS: POTASSIUM CHLORIDE 40 MEQ in DEXTROSE 10% 1,000 ML IV SCH (13:15)
[2019-02-26] MEDS: MIDAZOLAM HCL 50 MG in SODIUM CHLORIDE 0.9% 240 ML IV PRN (22:50)
[2019-02-27] MEDS: ALBUTEROL/IPRATROPIUM 2.5MG/0.5MG, 3 ML INLINE SCH ×6 (02:09→23:00)
[2019-02-27] MEDS: MEROPENEM 1 GM in SODIUM CHLORIDE 0.9% 100 ML IV SCH ×3 (03:56→20:46)
[2019-02-27] MEDS: MIDAZOLAM HCL 50 MG in SODIUM CHLORIDE 0.9% 240 ML IV PRN ×4 (04:23→19:36)
[2019-02-27 04:49] LABS: MEAN CORPUSCULAR HEMOGLOBIN 33.5 pg (27.5-34.5); MEAN CORPUSCULAR VOLUME 104.8 fL (81-97); MEAN PLATELET VOLUME 9.2 fL (7.4-10.4); PLATELET COUNT 83 x10^3/uL (130-400); RED BLOOD COUNT 2.04 x10^6/uL (4.38-5.82); RED CELL DISTRIBUTION WIDTH 23.5 % (9.4-14.8)
[2019-02-27 04:59] LABS: ANION GAP 17 mmol/L (5-15); CALCIUM 9.1 mg/dL (8.5-10.1); CHLORIDE 113 mmol/L (98-107); CREATININE 1.22 mg/dL (0.7-1.3)
[2019-02-27 05:41] LABS: MD YES
[2019-02-27 05:45] LABS: BAND#(MANUAL) 0.54 x10^3/uL; BANDS%(MANUAL) 2 % (0-7); LYMPH#(MANUAL) 5.92 x10^3/uL (1-3.4); LYMPHS% (MANUAL) 22 % (22-44); MONOS#(MANUAL) 0.27 x10^3/uL (0.3-2.7); MONOS% (MANUAL) 1 % (2-9); OTHER CELLS # (MANUAL) 11.84 x10^3/uL (0-0); OTHER CELLS % (MANUAL) 44 % (0-0); SEG#(MANUAL) 8.34 x10^3/uL (1.8-6.8); SEGS% (MANUAL) 31 % (42-75)
[2019-02-27 05:46] LABS: <PLATELET ESTIMATE> DECREASED; <PLT MORPHOLOGY> NORMAL PLT MORPH; ANISOCYTOSIS 1+; POLYCHROMASIA 1+; SMUDGE CELLS 1+
[2019-02-27] MEDS: PANTOPRAZOLE 40 MG IV IVPush SCH (06:25)
[2019-02-27] MEDS: SENNA/DOCUSATE TABLET PO SCH (08:28)
[2019-02-27] MEDS: SODIUM CHLORIDE FLUSH 10ML SYR IVF SCH ×2 (08:28→20:46)
[2019-02-27] MEDS: QUETIAPINE 25MG TABLET NG SCH (08:28)
[2019-02-27] MEDS: DEXTROSE 5% IV PRN (08:30)
[2019-02-27] MEDS: FENTANYL IV PRN (08:30)
[2019-02-27 08:32] VITALS: BP 103/47
[2019-02-27 08:47] VITALS: BP 103/47
[2019-02-27] MEDS: METHYLNALTREXONE 12 MG/0.6 ML SQ SCH (08:48)
[2019-02-27 09:02] VITALS: BP 99/44
[2019-02-27 09:32] VITALS: BP 114/51
[2019-02-27 10:02] VITALS: BP 99/45
[2019-02-27] MEDS: POTASSIUM CHLORIDE 40 MEQ in DEXTROSE 10% 1,000 ML IV SCH (10:38)
[2019-02-27 11:12] VITALS: BP 109/53
[2019-02-27] MEDS: FENTANYL PF 100 MCG/2ML IVPush PRN ×2 (20:46→22:26)
[2019-02-28] MEDS: POTASSIUM CHLORIDE 40 MEQ in DEXTROSE 10% 1,000 ML IV SCH ×2 (00:33→11:51)
[2019-02-28] MEDS: MIDAZOLAM HCL 50 MG in SODIUM CHLORIDE 0.9% 240 ML IV PRN ×4 (01:47→19:30)
[2019-02-28] MEDS: FENTANYL PF 100 MCG/2ML IVPush PRN ×4 (01:48→20:57)
[2019-02-28] MEDS: ALBUTEROL/IPRATROPIUM 2.5MG/0.5MG, 3 ML INLINE SCH ×6 (02:11→21:58)
[2019-02-28] MEDS: MEROPENEM 1 GM in SODIUM CHLORIDE 0.9% 100 ML IV SCH ×3 (04:54→20:56)
[2019-02-28] MEDS: PANTOPRAZOLE 40 MG IV IVPush SCH (05:00)
[2019-02-28 05:50] LABS: ANION GAP 16 mmol/L (5-15); CALCIUM 8.6 mg/dL (8.5-10.1); CHLORIDE 113 mmol/L (98-107); CREATININE 1.21 mg/dL (0.7-1.3)
[2019-02-28 05:55] LABS: MEAN CORPUSCULAR HEMOGLOBIN 33.3 pg (27.5-34.5); MEAN CORPUSCULAR HGB CONC 32.2 g/dL (33.2-36.2); MEAN CORPUSCULAR VOLUME 103.4 fL (81-97); PLATELET COUNT 82 x10^3/uL (130-400); RED BLOOD COUNT 2.26 x10^6/uL (4.38-5.82); RED CELL DISTRIBUTION WIDTH 22.9 % (9.4-14.8)
[2019-02-28 06:09] LABS: MD YES
[2019-02-28 06:28] LABS: EOS#(MANUAL) 0.28 x10^3/uL (0.0-0.4); EOS% (MANUAL) 1 % (1-7); LYMPH#(MANUAL) 10.22 x10^3/uL (1-3.4); LYMPHS% (MANUAL) 36 % (22-44); MONOS#(MANUAL) 1.14 x10^3/uL (0.3-2.7); MONOS% (MANUAL) 4 % (2-9); SEG#(MANUAL) 3.98 x10^3/uL (1.8-6.8)
[2019-02-28 06:29] LABS: ANISOCYTOSIS 1+; OTHER CELLS # (MANUAL) 12.78 x10^3/uL (0-0); OTHER CELLS % (MANUAL) 45 % (0-0); POLYCHROMASIA 1+; SMUDGE CELLS 1+
[2019-02-28 06:30] LABS: <PLATELET ESTIMATE> DECREASED; <PLT MORPHOLOGY> NORMAL PLT MORPH
[2019-02-28 06:31] LABS: SEGS% (MANUAL) 14 % (42-75)
[2019-02-28] MEDS: SODIUM CHLORIDE FLUSH 10ML SYR IVF SCH ×2 (08:41→20:57)
[2019-02-28] MEDS: SENNA/DOCUSATE TABLET PO SCH (08:41)
[2019-03-01] MEDS: FENTANYL PF 100 MCG/2ML IVPush PRN ×7 (01:03→20:59)
[2019-03-01] MEDS: ALBUTEROL/IPRATROPIUM 2.5MG/0.5MG, 3 ML INLINE SCH ×6 (02:03→22:19)
[2019-03-01] MEDS: POTASSIUM CHLORIDE 40 MEQ in DEXTROSE 10% 1,000 ML IV SCH ×2 (03:17→17:39)
[2019-03-01] MEDS: MEROPENEM 1 GM in SODIUM CHLORIDE 0.9% 100 ML IV SCH ×3 (04:39→20:03)
[2019-03-01 05:10] LABS: MEAN CORPUSCULAR HEMOGLOBIN 33.5 pg (27.5-34.5); MEAN CORPUSCULAR HGB CONC 32.4 g/dL (33.2-36.2); MEAN CORPUSCULAR VOLUME 103.5 fL (81-97); MEAN PLATELET VOLUME 8.9 fL (7.4-10.4); PLATELET COUNT 85 x10^3/uL (130-400); RED CELL DISTRIBUTION WIDTH 23.3 % (9.4-14.8)
[2019-03-01 05:17] LABS: ANION GAP 15 mmol/L (5-15); CALCIUM 8.6 mg/dL (8.5-10.1); CHLORIDE 112 mmol/L (98-107)
[2019-03-01 05:19] LABS: CREATININE 1.12 mg/dL (0.7-1.3); TRIGLYCERIDES 565 mg/dL (50-200)
[2019-03-01] MEDS: PANTOPRAZOLE 40 MG IV IVPush SCH (05:41)
[2019-03-01 06:28] LABS: MD YES
[2019-03-01] MEDS ORDERED: MAGNESIUM SULFATE PMX 2GM/50ML 50 ML IV ONE (08:00)
[2019-03-01] MEDS: SENNA/DOCUSATE TABLET PO SCH (08:25)
[2019-03-01] MEDS: SODIUM CHLORIDE FLUSH 10ML SYR IVF SCH ×2 (08:28→20:02)
[2019-03-01 08:48] LABS: <PLATELET ESTIMATE> DECREASED; ANISOCYTOSIS 1+; BAND#(MANUAL) 0.31 x10^3/uL; BANDS%(MANUAL) 1 % (0-7); LYMPH#(MANUAL) 10.64 x10^3/uL (1-3.4); LYMPHS% (MANUAL) 34 % (22-44); METAMYELOCYTES# (MANUAL) 0.63 x10^3/uL (0-0); METAMYELOCYTES% (MANUAL) 2 % (0-1); MONOS#(MANUAL) 0.63 x10^3/uL (0.3-2.7); MONOS% (MANUAL) 2 % (2-9); OTHER CELLS # (MANUAL) 14.09 x10^3/uL (0-0); OTHER CELLS % (MANUAL) 45 % (0-0); POLYCHROMASIA 1+; SEG#(MANUAL) 5.01 x10^3/uL (1.8-6.8); SMUDGE CELLS 1+
[2019-03-01 08:49] LABS: <PLT MORPHOLOGY> NORMAL PLT MORPH
[2019-03-01 08:50] LABS: SEGS% (MANUAL) 16 % (42-75)
[2019-03-01] MEDS: METHYLNALTREXONE 12 MG/0.6 ML SQ SCH (09:27)
[2019-03-01] MEDS: ALBUMIN HUMAN 25% 100 ML IV SCH ×2 (10:47→17:39)
[2019-03-01] MEDS: FUROSEMIDE 20 MG/2 ML IV SCH ×2 (12:20→20:02)
[2019-03-01] MEDS: LABETALOL 5MG/ML, 20ML IVPush PRN ×2 (17:39→20:03)
[2019-03-01] MEDS ORDERED: CATHFLO-ALTEPLASE 2 MG/2 ML CATHFLUSH ONE (20:30)
[2019-03-02] MEDS: FENTANYL PF 100 MCG/2ML IVPush PRN ×6 (00:56→22:14)
[2019-03-02] MEDS: ALBUTEROL/IPRATROPIUM 2.5MG/0.5MG, 3 ML INLINE SCH ×6 (02:01→22:08)
[2019-03-02] MEDS: ALBUMIN HUMAN 25% 100 ML IV SCH ×3 (02:16→18:08)
[2019-03-02] MEDS: FUROSEMIDE 20 MG/2 ML IV SCH ×3 (03:31→20:30)
[2019-03-02] MEDS: MEROPENEM 1 GM in SODIUM CHLORIDE 0.9% 100 ML IV SCH ×3 (04:23→20:31)
[2019-03-02 05:05] LABS: ANION GAP 14 mmol/L (5-15); CALCIUM 9.1 mg/dL (8.5-10.1); CHLORIDE 107 mmol/L (98-107); CREATININE 1.03 mg/dL (0.7-1.3)
[2019-03-02 05:51] LABS: MEAN CORPUSCULAR HEMOGLOBIN 32.6 pg (27.5-34.5); MEAN CORPUSCULAR HGB CONC 31.4 g/dL (33.2-36.2); MEAN CORPUSCULAR VOLUME 103.6 fL (81-97); MEAN PLATELET VOLUME 8.7 fL (7.4-10.4); PLATELET COUNT 79 x10^3/uL (130-400); RED BLOOD COUNT 2.32 x10^6/uL (4.38-5.82)
[2019-03-02] MEDS: PANTOPRAZOLE 40 MG IV IVPush SCH (05:52)
[2019-03-02 05:57] LABS: MD YES
[2019-03-02 06:01] LABS: ANISOCYTOSIS 1+; LYMPH#(MANUAL) 12.51 x10^3/uL (1-3.4); LYMPHS% (MANUAL) 37 % (22-44); MONOS#(MANUAL) 0.34 x10^3/uL (0.3-2.7); MONOS% (MANUAL) 1 % (2-9); OTHER CELLS # (MANUAL) 14.53 x10^3/uL (0-0); OTHER CELLS % (MANUAL) 43 % (0-0); POLYCHROMASIA 1+; SEG#(MANUAL) 6.42 x10^3/uL (1.8-6.8); SEGS% (MANUAL) 19 % (42-75)
[2019-03-02 06:02] LABS: <PLATELET ESTIMATE> DECREASED; <PLT MORPHOLOGY> NORMAL PLT MORPH; SMUDGE CELLS 1+
[2019-03-02] MEDS: SENNA/DOCUSATE TABLET PO SCH (07:46)
[2019-03-02] MEDS ORDERED: METHYLNALTREXONE 12 MG/0.6 ML SQ PRN (08:30)
[2019-03-02] MEDS: POTASSIUM CHLORIDE 40 MEQ in DEXTROSE 10% 1,000 ML IV SCH (09:16)
[2019-03-02] MEDS: SODIUM CHLORIDE FLUSH 10ML SYR IVF SCH ×2 (09:16→20:31)
[2019-03-02] MEDS ORDERED: METOPROLOL TARTRATE 25 MG TABLET ONE (09:40)
[2019-03-02] MEDS: METOPROLOL TARTRATE 25 MG TABLET PO SCH ×2 (09:41→18:09)
[2019-03-02] MEDS: LABETALOL 5MG/ML, 20ML IVPush PRN ×2 (14:06→22:15)
[2019-03-02] MEDS: OXYcodone 5 MG/5 ML ORAL.SOL UDC PO PRN (16:28)
[2019-03-02] MEDS ORDERED: POTASSIUM CHLORIDE 40 MEQ in D5%-0.9% NACL 1,000 ML IV SCH (18:30)
[2019-03-03] MEDS: ALBUTEROL/IPRATROPIUM 2.5MG/0.5MG, 3 ML INLINE SCH ×2 (02:10→06:30)
[2019-03-03] MEDS: ALBUMIN HUMAN 25% 100 ML IV SCH ×3 (03:07→18:17)
[2019-03-03] MEDS: MEROPENEM 1 GM in SODIUM CHLORIDE 0.9% 100 ML IV SCH ×3 (04:13→20:13)
[2019-03-03] MEDS: FUROSEMIDE 20 MG/2 ML IV SCH ×3 (04:13→20:13)
[2019-03-03] MEDS: OXYcodone 5 MG/5 ML ORAL.SOL UDC PO PRN (04:13)
[2019-03-03 04:19] LABS: MEAN CORPUSCULAR HEMOGLOBIN 33.5 pg (27.5-34.5); MEAN CORPUSCULAR HGB CONC 32.3 g/dL (33.2-36.2); MEAN CORPUSCULAR VOLUME 103.7 fL (81-97); MEAN PLATELET VOLUME 8.9 fL (7.4-10.4); PLATELET COUNT 83 x10^3/uL (130-400); RED BLOOD COUNT 2.38 x10^6/uL (4.38-5.82); RED CELL DISTRIBUTION WIDTH 23.1 % (9.4-14.8)
[2019-03-03 04:32] LABS: ANION GAP 16 mmol/L (5-15); CALCIUM 9.1 mg/dL (8.5-10.1); CHLORIDE 104 mmol/L (98-107); CREATININE 0.95 mg/dL (0.7-1.3)
[2019-03-03 04:42] LABS: MD YES
[2019-03-03 04:46] LABS: LYMPH#(MANUAL) 12.46 x10^3/uL (1-3.4); LYMPHS% (MANUAL) 36 % (22-44); MONOS#(MANUAL) 1.38 x10^3/uL (0.3-2.7); MONOS% (MANUAL) 4 % (2-9); SEG#(MANUAL) 4.84 x10^3/uL (1.8-6.8); SEGS% (MANUAL) 14 % (42-75)
[2019-03-03 04:47] LABS: <PLATELET ESTIMATE> DECREASED; <PLT MORPHOLOGY> NORMAL PLT MORPH; ANISOCYTOSIS 1+; OTHER CELLS # (MANUAL) 15.92 x10^3/uL (0-0); OTHER CELLS % (MANUAL) 46 % (0-0); POLYCHROMASIA 1+; SMUDGE CELLS 1+
[2019-03-03] MEDS: PANTOPRAZOLE 40 MG IV IVPush SCH (06:15)
[2019-03-03] MEDS: METOPROLOL TARTRATE 25 MG TABLET PO SCH ×2 (06:16→18:16)
[2019-03-03] MEDS ORDERED: MAGNESIUM SULFATE PMX 2GM/50ML 50 ML IVPB ONE (08:30)
[2019-03-03] MEDS: SODIUM CHLORIDE FLUSH 10ML SYR IVF SCH ×2 (09:00→20:13)
[2019-03-03] MEDS: ALBUTEROL/IPRATROPIUM 2.5MG/0.5MG, 3 ML NPPB SCH ×4 (10:00→22:26)
[2019-03-03] MEDS: LABETALOL 5MG/ML, 20ML IVPush PRN (11:25)
[2019-03-04] MEDS: ALBUTEROL/IPRATROPIUM 2.5MG/0.5MG, 3 ML NPPB SCH ×7 (02:43→22:37)
[2019-03-04] MEDS: ALBUMIN HUMAN 25% 100 ML IV SCH ×3 (02:49→16:53)
[2019-03-04] MEDS: FUROSEMIDE 20 MG/2 ML IV SCH ×3 (03:48→18:33)
[2019-03-04] MEDS: METOPROLOL TARTRATE 25 MG TABLET PO SCH ×2 (04:12→16:51)
[2019-03-04] MEDS: PANTOPRAZOLE 40 MG IV IVPush SCH (04:12)
[2019-03-04] MEDS: MEROPENEM 1 GM in SODIUM CHLORIDE 0.9% 100 ML IV SCH ×3 (04:12→20:43)
[2019-03-04] MEDS: ACETAMINOPHEN 650 MG/20.3 ML UDC PO PRN ×3 (04:12→16:50)
[2019-03-04] MEDS: OXYcodone 5 MG/5 ML ORAL.SOL UDC PO PRN ×2 (04:12→12:42)
[2019-03-04 04:55] LABS: MEAN CORPUSCULAR HEMOGLOBIN 33.2 pg (27.5-34.5); MEAN CORPUSCULAR HGB CONC 32.1 g/dL (33.2-36.2); MEAN CORPUSCULAR VOLUME 103.4 fL (81-97); MEAN PLATELET VOLUME 9.2 fL (7.4-10.4); PLATELET COUNT 77 x10^3/uL (130-400); RED BLOOD COUNT 2.38 x10^6/uL (4.38-5.82); RED CELL DISTRIBUTION WIDTH 23.3 % (9.4-14.8)
[2019-03-04 04:59] LABS: CHLORIDE 104 mmol/L (98-107); MD YES
[2019-03-04 05:02] LABS: LYMPH#(MANUAL) 16.85 x10^3/uL (1-3.4); LYMPHS% (MANUAL) 39 % (22-44); MONOS#(MANUAL) 0.86 x10^3/uL (0.3-2.7); MONOS% (MANUAL) 2 % (2-9); OTHER CELLS # (MANUAL) 19.01 x10^3/uL (0-0); SEG#(MANUAL) 6.48 x10^3/uL (1.8-6.8); SEGS% (MANUAL) 15 % (42-75)
[2019-03-04 05:03] LABS: <PLATELET ESTIMATE> DECREASED; <PLT MORPHOLOGY> NORMAL PLT MORPH; ANISOCYTOSIS 1+; OTHER CELLS % (MANUAL) 44 % (0-0); POLYCHROMASIA 1+; SMUDGE CELLS 1+
[2019-03-04 05:08] LABS: ANION GAP 15 mmol/L (5-15); CALCIUM 9.7 mg/dL (8.5-10.1); TRIGLYCERIDES 371 mg/dL (50-200)
[2019-03-04] MEDS: SODIUM CHLORIDE FLUSH 10ML SYR IVF SCH ×2 (09:00→20:43)
[2019-03-05] MEDS: ALBUMIN HUMAN 25% 100 ML IV SCH (02:40)
[2019-03-05] MEDS: ALBUTEROL/IPRATROPIUM 2.5MG/0.5MG, 3 ML NPPB SCH ×6 (02:43→22:26)
[2019-03-05] MEDS: FUROSEMIDE 20 MG/2 ML IV SCH ×3 (04:12→20:12)
[2019-03-05] MEDS: MEROPENEM 1 GM in SODIUM CHLORIDE 0.9% 100 ML IV SCH ×3 (04:12→20:12)
[2019-03-05 05:09] LABS: CHLORIDE 105 mmol/L (98-107)
[2019-03-05 05:11] LABS: MEAN CORPUSCULAR HEMOGLOBIN 33.8 pg (27.5-34.5); MEAN CORPUSCULAR HGB CONC 32.2 g/dL (33.2-36.2); PLATELET COUNT 82 x10^3/uL (130-400); RED BLOOD COUNT 2.26 x10^6/uL (4.38-5.82)
[2019-03-05 05:13] LABS: ANION GAP 15 mmol/L (5-15); CREATININE 1.21 mg/dL (0.7-1.3)
[2019-03-05] MEDS: PANTOPRAZOLE 40 MG IV IVPush SCH (05:35)
[2019-03-05] MEDS: METOPROLOL TARTRATE 25 MG TABLET PO SCH ×2 (05:35→18:40)
[2019-03-05 05:45] LABS: MD YES
[2019-03-05 06:01] LABS: LYMPH#(MANUAL) 19.78 x10^3/uL (1-3.4); LYMPHS% (MANUAL) 42 % (22-44); SEG#(MANUAL) 6.59 x10^3/uL (1.8-6.8); SEGS% (MANUAL) 14 % (42-75)
[2019-03-05 06:02] LABS: <PLATELET ESTIMATE> DECREASED; <PLT MORPHOLOGY> NORMAL PLT MORPH; ANISOCYTOSIS 1+; OTHER CELLS # (MANUAL) 20.72 x10^3/uL (0-0); OTHER CELLS % (MANUAL) 44 % (0-0); POLYCHROMASIA 1+; SMUDGE CELLS 1+
[2019-03-05] MEDS: SODIUM CHLORIDE FLUSH 10ML SYR IVF SCH ×2 (09:49→20:12)
[2019-03-06] MEDS: ALBUTEROL/IPRATROPIUM 2.5MG/0.5MG, 3 ML NPPB SCH ×6 (02:47→22:07)
[2019-03-06] MEDS: FUROSEMIDE 20 MG/2 ML IV SCH ×3 (03:53→20:29)
[2019-03-06] MEDS: PANTOPRAZOLE 40 MG IV IVPush SCH (04:38)
[2019-03-06] MEDS: MEROPENEM 1 GM in SODIUM CHLORIDE 0.9% 100 ML IV SCH ×3 (04:38→20:29)
[2019-03-06 05:06] LABS: ANION GAP 17 mmol/L (5-15); CALCIUM 10.5 mg/dL (8.5-10.1); CHLORIDE 102 mmol/L (98-107); CREATININE 1.21 mg/dL (0.7-1.3)
[2019-03-06 05:48] LABS: MD YES; MEAN CORPUSCULAR HGB CONC 32.1 g/dL (33.2-36.2); MEAN CORPUSCULAR VOLUME 105.7 fL (81-97); MEAN PLATELET VOLUME 9.2 fL (7.4-10.4); PLATELET COUNT 94 x10^3/uL (130-400); RED BLOOD COUNT 2.49 x10^6/uL (4.38-5.82); RED CELL DISTRIBUTION WIDTH 23.8 % (9.4-14.8)
[2019-03-06 05:56] LABS: LYMPH#(MANUAL) 21.79 x10^3/uL (1-3.4); LYMPHS% (MANUAL) 34 % (22-44); SEG#(MANUAL) 5.77 x10^3/uL (1.8-6.8); SEGS% (MANUAL) 9 % (42-75)
[2019-03-06 05:57] LABS: <PLATELET ESTIMATE> DECREASED; <PLT MORPHOLOGY> NORMAL PLT MORPH; ANISOCYTOSIS 1+; OTHER CELLS # (MANUAL) 36.54 x10^3/uL (0-0); OTHER CELLS % (MANUAL) 57 % (0-0); POLYCHROMASIA 1+; SMUDGE CELLS 1+
[2019-03-06] MEDS: METOPROLOL TARTRATE 25 MG TABLET PO SCH ×2 (06:09→19:29)
[2019-03-06] MEDS: SODIUM CHLORIDE FLUSH 10ML SYR IVF SCH ×2 (07:40→20:31)
[2019-03-06] MEDS: FENTANYL PF 100 MCG/2ML IVPush PRN (12:36)
[2019-03-06] MEDS: ACETAMINOPHEN 650 MG/20.3 ML UDC PO PRN ×2 (13:03→19:29)
[2019-03-06] MEDS: HEPARIN 5,000 UNITS/ML, 1ML SQ SCH (20:29)
[2019-03-07] MEDS: ALBUTEROL/IPRATROPIUM 2.5MG/0.5MG, 3 ML NPPB SCH ×6 (02:00→22:43)
[2019-03-07] MEDS: MEROPENEM 1 GM in SODIUM CHLORIDE 0.9% 100 ML IV SCH ×3 (03:50→20:21)
[2019-03-07] MEDS: HEPARIN 5,000 UNITS/ML, 1ML SQ SCH ×3 (03:51→20:21)
[2019-03-07 05:44] LABS: ANION GAP 16 mmol/L (5-15); CHLORIDE 107 mmol/L (98-107); CREATININE 1.45 mg/dL (0.7-1.3)
[2019-03-07] MEDS: METOPROLOL TARTRATE 25 MG TABLET PO SCH ×2 (05:56→17:41)
[2019-03-07 06:13] LABS: MEAN CORPUSCULAR HEMOGLOBIN 33.6 pg (27.5-34.5); MEAN CORPUSCULAR HGB CONC 31.5 g/dL (33.2-36.2); MEAN CORPUSCULAR VOLUME 106.5 fL (81-97); MEAN PLATELET VOLUME 10.2 fL (7.4-10.4); PLATELET COUNT 112 x10^3/uL (130-400); RED BLOOD COUNT 2.69 x10^6/uL (4.38-5.82)
[2019-03-07 06:28] LABS: MD YES
[2019-03-07 06:32] LABS: LYMPH#(MANUAL) 31.18 x10^3/uL (1-3.4); LYMPHS% (MANUAL) 36 % (22-44); SEGS% (MANUAL) 6 % (42-75)
[2019-03-07 06:33] LABS: <PLATELET ESTIMATE> DECREASED; <PLT MORPHOLOGY> NORMAL PLT MORPH; ANISOCYTOSIS 1+; OTHER CELLS # (MANUAL) 50.23 x10^3/uL (0-0); OTHER CELLS % (MANUAL) 58 % (0-0); POLYCHROMASIA 1+; SMUDGE CELLS 1+
[2019-03-07] MEDS: SODIUM CHLORIDE FLUSH 10ML SYR IVF SCH ×2 (07:30→20:21)
[2019-03-07] MEDS: OXYcodone 5 MG/5 ML ORAL.SOL UDC PO PRN (12:55)
[2019-03-08] MEDS: ALBUTEROL/IPRATROPIUM 2.5MG/0.5MG, 3 ML NPPB SCH ×6 (02:27→23:00)
[2019-03-08] MEDS: HEPARIN 5,000 UNITS/ML, 1ML SQ SCH ×3 (04:35→19:51)
[2019-03-08] MEDS: MEROPENEM 1 GM in SODIUM CHLORIDE 0.9% 100 ML IV SCH ×3 (04:37→19:51)
[2019-03-08 06:02] LABS: ANION GAP 17 mmol/L (5-15); CALCIUM 10.3 mg/dL (8.5-10.1); CHLORIDE 108 mmol/L (98-107); CREATININE 2.21 mg/dL (0.7-1.3)
[2019-03-08 06:06] LABS: MEAN CORPUSCULAR HEMOGLOBIN 32.9 pg (27.5-34.5); MEAN CORPUSCULAR HGB CONC 30.2 g/dL (33.2-36.2); MEAN PLATELET VOLUME 10.1 fL (7.4-10.4); PLATELET COUNT 108 x10^3/uL (130-400); RED CELL DISTRIBUTION WIDTH 23.5 % (9.4-14.8)
[2019-03-08] MEDS: METOPROLOL TARTRATE 25 MG TABLET PO SCH ×2 (06:32→17:34)
[2019-03-08 06:34] LABS: MD YES
[2019-03-08] MEDS: SODIUM CHLORIDE FLUSH 10ML SYR IVF SCH ×2 (07:32→19:51)
[2019-03-08 07:47] LABS: BANDS%(MANUAL) 1 % (0-7); EOS% (MANUAL) 1 % (1-7); LYMPH#(MANUAL) 36.93 x10^3/uL (1-3.4); LYMPHS% (MANUAL) 37 % (22-44); SEG#(MANUAL) 8.98 x10^3/uL (1.8-6.8); SEGS% (MANUAL) 9 % (42-75)
[2019-03-08 07:48] LABS: MONOS% (MANUAL) 1 % (2-9)
[2019-03-08 07:49] LABS: <PLATELET ESTIMATE> DECREASED; <PLT MORPHOLOGY> NORMAL PLT MORPH; ANISOCYTOSIS 1+; OTHER CELLS % (MANUAL) 51 % (0-0)
[2019-03-08] MEDS: OXYcodone 5 MG/5 ML ORAL.SOL UDC PO PRN (15:27)
[2019-03-09] MEDS: ALBUTEROL/IPRATROPIUM 2.5MG/0.5MG, 3 ML NPPB SCH ×3 (03:00→10:00)
[2019-03-09] MEDS: MEROPENEM 1 GM in SODIUM CHLORIDE 0.9% 100 ML IV SCH ×2 (04:31→12:00)
[2019-03-09] MEDS: HEPARIN 5,000 UNITS/ML, 1ML SQ SCH ×2 (04:32→12:00)
[2019-03-09 04:45] LABS: ANION GAP 19 mmol/L (5-15); CALCIUM 9.5 mg/dL (8.5-10.1); CHLORIDE 103 mmol/L (98-107); CREATININE 2.88 mg/dL (0.7-1.3)
[2019-03-09 05:04] LABS: MEAN CORPUSCULAR HEMOGLOBIN 32.5 pg (27.5-34.5); MEAN CORPUSCULAR VOLUME 110.3 fL (81-97); MEAN PLATELET VOLUME 10.5 fL (7.4-10.4); PLATELET COUNT 108 x10^3/uL (130-400); RED BLOOD COUNT 2.56 x10^6/uL (4.38-5.82); RED CELL DISTRIBUTION WIDTH 22.6 % (9.4-14.8)
[2019-03-09 05:11] LABS: MEAN CORPUSCULAR HGB CONC 29.4 g/dL (33.2-36.2)
[2019-03-09 05:49] LABS: MD YES
[2019-03-09 05:54] LABS: LYMPH#(MANUAL) 40.16 x10^3/uL (1-3.4); LYMPHS% (MANUAL) 33 % (22-44); OTHER CELLS # (MANUAL) 65.72 x10^3/uL (0-0); OTHER CELLS % (MANUAL) 54 % (0-0); SEG#(MANUAL) 15.82 x10^3/uL (1.8-6.8); SEGS% (MANUAL) 13 % (42-75)
[2019-03-09 05:55] LABS: ANISOCYTOSIS 1+
[2019-03-09 05:56] LABS: <PLATELET ESTIMATE> DECREASED; <PLT MORPHOLOGY> NORMAL PLT MORPH; SMUDGE CELLS 1+
[2019-03-09 05:57] LABS: POLYCHROMASIA 1+
[2019-03-09 05:58] LABS: STOMATOCYTES 1+
[2019-03-09 06:01] LABS: BASOPHILLIC STIPPLING 1+
[2019-03-09] MEDS: SODIUM CHLORIDE FLUSH 10ML SYR IVF SCH (07:30)
[2019-03-09] MEDS ORDERED: SODIUM POLYSTYRENE SULFONATE ORAL SUSP PO ONE (08:30)
[2019-03-09] MEDS ORDERED: NOREPINEPHRINE 1 MG/ML, 4ML ONE (09:16)
[2019-03-09] MEDS ORDERED: NOREPINEPHRINE 4 MG in SODIUM CHLORIDE 0.9% 246 ML IV PRN (09:30)
[2019-03-09] MEDS ORDERED: VASOPRESSIN 100 UNIT in SODIUM CHLORIDE 0.9% 495 ML IV PRN (12:30)
== END 2019-03-09 12:42 | disposition expired | DRG 853 ==
LOC: ED 16:37 → SUATTDRO 17:02 → EDIP 17:12 → CCU 17:16 → 5SO 02-07 18:09 → CCU 02-08 13:32
PROVIDERS: ADMIT Internal Medicine; ATTEND Internal Medicine
PROC: 5A1955Z Respiratory Ventilation, Greater than 96 Consecutive Hours (ICD-10-PCS; principal; 2019-01-24)
PROC: 0B9H8ZX Drainage of Lung Lingula, Via Natural or Artificial Opening Endoscopic, Diagnostic (ICD-10-PCS; 2019-01-24)
PROC: 0BH17EZ Insertion of Endotracheal Airway into Trachea, Via Natural or Artificial Opening (ICD-10-PCS; 2019-01-24)
PROC: 5A09357 Assistance with Respiratory Ventilation, Less than 24 Consecutive Hours, Continuous Positive Airway Pressure (ICD-10-PCS; 2019-01-24)
PROC: 0B9J8ZX Drainage of Left Lower Lung Lobe, Via Natural or Artificial Opening Endoscopic, Diagnostic (ICD-10-PCS; 2019-01-24)
PROC: 0B9C8ZX Drainage of Right Upper Lung Lobe, Via Natural or Artificial Opening Endoscopic, Diagnostic (ICD-10-PCS; 2019-01-24)
PROC: 0B9G8ZX Drainage of Left Upper Lung Lobe, Via Natural or Artificial Opening Endoscopic, Diagnostic (ICD-10-PCS; 2019-01-24)
PROC: 0B9D8ZX Drainage of Right Middle Lung Lobe, Via Natural or Artificial Opening Endoscopic, Diagnostic (ICD-10-PCS; 2019-01-24)
PROC: 0B9F8ZX Drainage of Right Lower Lung Lobe, Via Natural or Artificial Opening Endoscopic, Diagnostic (ICD-10-PCS; 2019-01-24)
PROC: 0W9930Z Drainage of Right Pleural Cavity with Drainage Device, Percutaneous Approach (ICD-10-PCS; 2019-01-26)
PROC: 30233N1 Transfusion of Nonautologous Red Blood Cells into Peripheral Vein, Percutaneous Approach (ICD-10-PCS; 2019-01-29)
PROC: 0BP1XDZ Removal of Intraluminal Device from Trachea, External Approach (ICD-10-PCS; 2019-02-04)
PROC: 0T9B70Z Drainage of Bladder with Drainage Device, Via Natural or Artificial Opening (ICD-10-PCS; 2019-02-08)
PROC: 0BH17EZ Insertion of Endotracheal Airway into Trachea, Via Natural or Artificial Opening (ICD-10-PCS; 2019-02-09)
PROC: 5A1955Z Respiratory Ventilation, Greater than 96 Consecutive Hours (ICD-10-PCS; 2019-02-09)
PROC: 02HV33Z Insertion of Infusion Device into Superior Vena Cava, Percutaneous Approach (ICD-10-PCS; 2019-02-25)
PROC: B5181ZA Fluoroscopy of Superior Vena Cava using Low Osmolar Contrast, Guidance (ICD-10-PCS; 2019-02-25)
PROC: B548ZZA Ultrasonography of Superior Vena Cava, Guidance (ICD-10-PCS; 2019-02-25)
DX: A41.01 Sepsis due to Methicillin susceptible Staphylococcus aureus (principal); R65.21 Severe sepsis with septic shock; N17.0 Acute kidney failure with tubular necrosis; J69.0 Pneumonitis due to inhalation of food and vomit; J13 Pneumonia due to Streptococcus pneumoniae; J86.9 Pyothorax without fistula; J96.01 Acute respiratory failure with hypoxia; I50.33 Acute on chronic diastolic (congestive) heart failure; G93.41 Metabolic encephalopathy; E43 Unspecified severe protein-calorie malnutrition; J44.0 Chronic obstructive pulmonary disease with (acute) lower respiratory infection; I47.2 Ventricular tachycardia; C83.10 Mantle cell lymphoma, unspecified site; E87.0 Hyperosmolality and hypernatremia; E87.1 Hypo-osmolality and hyponatremia; E87.2 Acidosis; K56.0 Paralytic ileus; Z94.84 Stem cells transplant status; Z99.11 Dependence on respirator [ventilator] status; T45.1X5A Adverse effect of antineoplastic and immunosuppressive drugs, initial encounter; I11.0 Hypertensive heart disease with heart failure; I46.9 Cardiac arrest, cause unspecified; D50.9 Iron deficiency anemia, unspecified; D69.59 Other secondary thrombocytopenia; E11.649 Type 2 diabetes mellitus with hypoglycemia without coma; E78.00 Pure hypercholesterolemia, unspecified; E78.1 Pure hyperglyceridemia; F17.200 Nicotine dependence, unspecified, uncomplicated; I27.20 Pulmonary hypertension, unspecified; N40.0 Benign prostatic hyperplasia without lower urinary tract symptoms; R13.10 Dysphagia, unspecified; E78.5 Hyperlipidemia, unspecified; Z16.11 Resistance to penicillins; E83.42 Hypomagnesemia; G89.29 Other chronic pain; E87.5 Hyperkalemia; E87.6 Hypokalemia; Z71.6 Tobacco abuse counseling; Z51.5 Encounter for palliative care; Z66 Do not resuscitate; Z78.1 Physical restraint status; Y92.89 Other specified places as the place of occurrence of the external cause; Z79.4 Long term (current) use of insulin; Z80.1 Family history of malignant neoplasm of trachea, bronchus and lung; Z80.3 Family history of malignant neoplasm of breast; Z87.01 Personal history of pneumonia (recurrent); Z68.22 Body mass index [BMI] 22.0-22.9, adult; Z79.899 Other long term (current) drug therapy
CPT/HCPCS: 36415; 36600; 74018; 74230; 83036; 84145; 99285; J3490; J7042; J7620; 31624; 36573; 70450; 71045; 71250; 74176; 76700; 76705; 80048; 80053; 80069; 81001; 82040; 82436; 82533; 82542; 82607; 82803; 82962; 83605; 83615; 83690; 83735; 83880; 84100; 84132; 84133; 84300; 84443; 84478; 84484; 84550; 85014; 85018; 85025; 85049; 85379; 85384; 85610; 85651; 85730; 86022; 86078; 86140; 86850; 86900; 86923; 87015; 87040; 87070; 87075; 87077; 87081; 87086; 87102; 87116; 87147; 87181; 87186; 87205; 87206; 87324; 87633; 93005; 93306; 93970; 94002; 94003; 94150; 94640; 94660; 94667; 94668; C1729; G0378; J0295; J0690; J0696; J1644; J1885; J1940; J2020; J2185; J2250; J2543; J2704; J2783; J2997; J3010; J3360; J3370; J3480; J3486; J7060; J7070; P9045; P9047; C1751; C9113; J1120; J1630; J1815; J2930; J3475; J7030; J7040; J7050; P9016